=== PATIENT | male | born 1970 | race Caucasian/White ===

== ENCOUNTER 2016-12-16 11:53 | Inpatient (IN) | payer OTHER ==
[~2016-12-16] VITALS: Ht 188 cm; Wt 113.4 kg
[~2016-12-16 11:53] MED LIST: ANTIVERT 25 MG25 M1 PO; ANTIVERT 25MG #1 PAC PO; ATORVASTATIN CA10 MG PO; ATORVASTATIN CA80 M1 PO; BABY ASPIRIN CH81 MG PO; LISINOPRIL10 MG PO; LISINOPRIL20 MG PO; MEDROL DOSEPAK1 PA1 PO; MOTRIN 400 MG400 MG PO; NIACIN500 M4 PO; PLAVIX 75MG TAB75 MG PO; PREDNISONE50 MG PO; ZOFRAN4 M1 PO; [UNRECOGNIZED DRUG - SUPPLY]
--- NOTE | 2016-12-16 11:59 | NUR ---
PT DENIES INJURY RELATED TO FALL
--- NOTE | 2016-12-16 11:59 | NUR ---
RECEIVED 46 YO MALE, WHEELCHAIR DEPENDENT SECONDARY TO CVA WITH LEFT LEG WEAKNESS, C/O 3RD FALL TODAY AND ABOUT 7TH FALL THIS WEEK ACCORDING TO EMS. PT SAID HE FELL TRANSFERRING FROM W/C TO RECLINER, UNABLE TO PICK HIMSELF UP.
[2016-12-16] MEDS ORDERED: LISINOPRIL40 M1 PO (12:18)
[2016-12-16] MEDS ORDERED: CLOPIDOGREL75 M1 PO (12:18)
[2016-12-16] MEDS ORDERED: CRESTOR40 M2 PO (12:19)
[2016-12-16] MEDS ORDERED: HYDROCHLOROTHIA25 M1 PO (12:19)
[2016-12-16] MEDS ORDERED: FENOFIBRATE54 M1 PO (12:19)
--- NOTE | 2016-12-16 12:20 | NUR ---
PA STUDENT AT BEDSIDE TO EVAL PT
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
--- NOTE | 2016-12-16 12:51 | NUR ---
PT LEFT FOR RADIOLOGY
--- NOTE | 2016-12-16 13:29 | NUR ---
LABS DRAWN VIA BUTTERFLY AND SENT
[2016-12-16 13:35] LABS: ABSOLUTE BASOPHIL COUNT 0 /CUMM (0.0-0.2); ABSOLUTE EOSINOPHIL COUNT 0.1 /CUMM (0.0-0.7); ABSOLUTE GRANULOCYTE CT 5.3 /CUMM (1.4-6.5); ABSOLUTE LYMPH COUNT 2.6 /CUMM (1.2-3.4); ABSOLUTE MONOCYTE COUNT 0.6 /CUMM (0.10-0.60); BASOPHIL % 0.5 % (0.0-2.0); EOSINOPHIL % 1.1 % (0-5); GRANULOCYTE % 61.6 % (42.2-75.2); HEMATOCRIT 38.5 % (42-52); MEAN CORPUSCULAR HGB 27.1 PG (27.0-31.0); MEAN CORPUSCULAR HGB CONC 33.2 G/DL (33.0-37.0); MEAN CORPUSCULAR VOLUME 81.6 FL (80.0-94.0); MEAN PLATELET VOLUME 9.4 FL (7.4-10.4); PLATELET COUNT 261 /CUMM (130-400); RBC DISTRIBUTION WIDTH 13.6 % (11.5-14.5); RED BLOOD CELL CT 4.72 /CUMM (4.70-6.10); WHITE BLOOD CELL COUNT 8.6 /CUMM (4.8-10.8)
--- NOTE | 2016-12-16 13:52 | CT SCAN REPORT ---
EXAMINATION: CT HEAD WITHOUT CONTRAST CLINICAL INFORMATION: Previous CVA. Weakness. Rule out stroke. Falling at home. COMPARISON: Head CT from 09/28/2016. TECHNIQUE: Contiguous axial imaging was performed from the skull base to vertex without intravenous administration of contrast. DLP: 743.8 mGy-cm FINDINGS: There is no evidence of acute intracranial hemorrhage or territorial infarction. No abnormal mass effect or midline shift is seen. There is a focal area of low-density change involving the high right parietal lobe near the vertex, not present on previous imaging and most suspicious for an infarct of indeterminate age. There is no hydrocephalus. No extra-axial fluid collections are identified. There are chronic lacunar infarcts in the left basal ganglia. There is a chronic infarct in the left frontal lobe with mild ex vacuo dilatation of the frontal horn of the left lateral ventricle. Mild to moderate chronic white matter microangiopathic changes are present. Chronic cortical-based infarct noted in the medial right frontal lobe at the high convexity. Additional small cortical-based infarcts noted in the right frontal lobe. There is is a small chronic cortical-based infarct in the precentral gyrus of the right frontal lobe at the high convexity. The osseous structures and soft tissues are normal. The mastoid air cells and visualized portions of the paranasal sinuses are well aerated. IMPRESSION: Age-indeterminate infarct in the high right parietal lobe near the vertex which may be acute to subacute in age, not visible on previous imaging. No acute hemorrhage. Scattered chronic infarcts and mild to moderate chronic white matter microangiopathic changes. Imaging findings discussed with SAMIRA Dash at 1:45 PM on 12/16/2016.
--- NOTE | 2016-12-16 14:03 | NUR ---
ATTEMPTED TO AMBULATE PT VIA WALKER AND PT ONLY ABLE TO TAKE A COUPLE STEPS AND BECAME ON STEADY. ASSISTED PT TO BRIELLE AND SAMIRA NOTED AND AWARE OF ATTENMPT
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
--- NOTE | 2016-12-16 15:10 | NUR ---
DR. ROSE AT AT BEDSIDE TO LUCIA PT
--- NOTE | 2016-12-16 15:13 | NUR ---
[facility] ASSIGNMENT [phone]
--- NOTE | 2016-12-16 16:25 | NUR ---
PT VOIDED AND NOW EATING
--- NOTE | 2016-12-16 16:36 | NUR ---
CALLED REPORT AND ATTENPT TO CALL TRANSPORT UNSUCCESSFUL AT PRESENT WILL TRY AGAIN
[2016-12-16 17:50] VITALS: BP 112/60
--- NOTE | 2016-12-16 20:49 | NUR ---
PT HAVING TRIPLETS AND BIGEMENY ON THE MONITOR. MD SALMON NOTIFIED. WILL CONTINUE TO CLOSELY MONITOR.
[2016-12-16 23:10] VITALS: BP 118/60
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
[2016-12-17 07:53] VITALS: BP 102/62
[2016-12-17 08:13] LABS: ABSOLUTE BASOPHIL COUNT 0 /CUMM (0.0-0.2); ABSOLUTE EOSINOPHIL COUNT 0.2 /CUMM (0.0-0.7); ABSOLUTE GRANULOCYTE CT 4.8 /CUMM (1.4-6.5); ABSOLUTE LYMPH COUNT 2.8 /CUMM (1.2-3.4); ABSOLUTE MONOCYTE COUNT 0.6 /CUMM (0.10-0.60); BASOPHIL % 0.4 % (0.0-2.0); EOSINOPHIL % 2.1 % (0-5); GRANULOCYTE % 57.5 % (42.2-75.2); HEMATOCRIT 37.6 % (42-52); MEAN CORPUSCULAR HGB 27.3 PG (27.0-31.0); MEAN CORPUSCULAR HGB CONC 33.5 G/DL (33.0-37.0); MEAN CORPUSCULAR VOLUME 81.4 FL (80.0-94.0); MEAN PLATELET VOLUME 9.9 FL (7.4-10.4); PLATELET COUNT 229 /CUMM (130-400); RBC DISTRIBUTION WIDTH 13.8 % (11.5-14.5); RED BLOOD CELL CT 4.62 /CUMM (4.70-6.10); WHITE BLOOD CELL COUNT 8.4 /CUMM (4.8-10.8)
--- NOTE | 2016-12-17 10:30 | Admission Certification ---
Admission Certification Certification Statement - As attending physician, I certify that at the time of - admission, based on clinical presentation, severity of - symptoms, need for further diagnostic testing and - therapeutic interventions, and risk of adverse outcomes - without in-hospital treatment, in my clinical assessment, - this patient requires an acute hospital stay for a minimum - of two nights or longer. I have also considered psychsocial - factors such as support system, advanced age, financial - issues, cognitive issues, and failed out-patient treatments, - past re-admission history, safety of patient, and lack of - compliance as applicable. Specific rationale supporting this admission is: Patient requires admission for further evaluation and management of what appears to be a new stroke
[2016-12-17 15:44] VITALS: BP 104/70
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
[2016-12-17 23:31] VITALS: BP 110/70
--- NOTE | 2016-12-18 07:27 | PN- Housestaff ---
DALIA GRIGSBY,[facility] 12/18/16 0727: Subjective Follow-up For: gait instability/falls Tele-Events Since Last Visit: Off Monitor Subjective: Patient seen and examined this morning. He was sitting in his chair in no acute distress eating his breakfast, least interested in a conversation, denies any new complaints, remains afebrile, vitals within normal limits. Review of Systems Constitutional: Reports: see HPI. Objective Last 24 Hrs of Vital Signs/I&O Vital Signs Date Time Temp Pulse Resp B/P Pulse O2 O2 Flow FiO2 Ox Delivery Rate 12/18 0836 Room Air 12/18 0830 98.0 52 20 110/70 97 Room Air 12/17 2331 98.4 59 18 110/70 94 Room Air 12/17 1544 97.7 59 16 104/70 96 Room Air 12/17 1223 Room Air Intake & Output 12/18 1600 12/18 0800 12/18 0000 Intake Total 300 720 Output Total 650 Balance 300 70 Intake, Oral 300 720 Output, Urine 650 Physical Exam General Appearance: Alert, Oriented X3, Cooperative, No Acute Distress Cardiovascular: Regular Rate, Normal S1, Normal S2 Lungs: Clear to Auscultation, Normal Air Movement Abdomen: Normal Bowel Sounds, Soft, No Tenderness Extremities: No Clubbing, No Cyanosis, No Edema Current Medications: Current Medications Sig/Fermin Start time Last Medication Dose Route Stop Time Status Admin Atorvastatin Calcium 80 MG 1700 12/16 1700 AC 12/17 PO 1605 Clopidogrel Bisulfate 75 MG DAILY 12/16 1607 AC 12/17 PO 0935 Enoxaparin Sodium 40 MG DAILY 12/17 1000 AC SC Fenofibrate 48 MG DAILY 12/17 1000 AC 12/17 PO 0935 Lisinopril 40 MG DAILY 12/17 1000 AC 12/17 PO 0935 Niacin 500 MG DAILY 12/17 1000 AC 12/17 PO 0935 Patient Medication 1 ED .STK-MED ONE 12/17 1340 [place] Teaching ED 12/17 1341 Last 24 Hrs of Lab/Chong Results Last 24 Hrs of Labs/Mics: Laboratory Tests 12/18/16 0625: Anion Gap 12, Estimated GFR > 60, BUN/Creatinine Ratio 23.6 Assessment/Plan Assessment: This is a 46-year-old male with past medical history significant for labyrinthitis, hypertension, hyperlipidemia, CVA (left hemisphere hemorrhagic stroken 2010), vertigo, PPM for bradycardia in 2015, and TIA who presents with CC of worsening lower extremity weakness and multiple falls within the last few days. Vitals upon presentation temperature 97.3, pulse 66, respiratory rate 19, blood pressure 126/60, satting in mid 90s on room air Pertinent labs WBC 9.6, H&H 12.8, 38.5, potassium 3.3, BUN 28, creatinine 1.1 Age-indeterminate infarct in the high right parietal lobe near the vertex which may be acute to subacute in age, not visible on previous imaging. No acute hemorrhage. Scattered chronic infarcts and mild to moderate chronic white matter microangiopathic changes. We'll admit the patient to telemetry floor and monitor for the following conditions; Weakness, multiple falls, questionable new CVA: Patient was recently admitted at [facility](09/2016), he was managed for lower extremity weakness weakness secondary to CVA, MRI done upon last admission showed multiple acute to subacute infarcts involving the right frontal and parietal lobes inclusive of the right perirolandic region, some of which appear watershed, and some of which are located within the right RICK and MCA territories. EEG done at that time showed structural abnormality of the left frontal and right temporal head regions, CT head and neck showed extensive intracranial atherosclerosis with marked irregularity and multifocal narrowing. He was transferred to [facility] for further evaluation for possibility of vasculitis and to have a cerebral angiogram done. As per patient he spent a couple of days at [facility] in the cerebral angiogram was done but he is not aware of the results, he was discharged to a short-term rehabilitation where for almost a month and a half. From be discharged from short-term rehabilitation up until now he has been living alone in his house, does his daily chores by himself without any difficulty. He follows up with his neurologist upon discharge who discontinued his aspirin and asked him to take Plavix alone. Records from [facility] reviewed no evidence of vasculitis as per cerebral angiogram, hypercoagulable workup negative, the also did an LP there which did not reveal any evidence of an intracranial infection, most likely cause seems to be intracranial atherosclerosis insetting of bilateral carotid artery stenosis 50-79% , he also continues to smoke and not following appropriate likely dietry restrictions insetting of being overweight and not being able to exercise secondary to stoke related residual weakness. We'll continue home dose of Plavix 75 mg and Lipitor 80 mg daily. Continuous cardiac monitoring for any arrhythmias Frequent Neurochecks PT and OT consult placed will follow-up recommendation Neurology consult obtained, has recommended Smoking cessation, to continue Plavix, ASA, Statin, goal LDL~70, prosthetics for a left ankle-foot orthosis and to follow-up in [facility] neurology clinic with Dr. Chan History of hyperlipidemia: We'll continue home dose of niacin 500 mg daily, fenofibrate. History of hypertension: Continue home dose of lisinopril 40 mg and hydrochlorothiazide 25 mg daily Diet: Heart healthy DVT prophylaxis with Lovenox Full code Problem List: 1. CVA (cerebral vascular accident) 2. Left leg weakness 3. Frequent falls Pain Ratin Pain Location: none Pain Goal: Remain pain free Pain Plan: mild pp Tomorrow's Labs & Rationales: none patient to be discharged Consulting Request: Consulting Specialty: Neurology Discharge Plan Discharge Disposition: awaiting STR/NH placement Stable for Discharge? Yes Anticipated Discharge (Day): today If Discharged Today/In 24 Hrs: W-10/discharge paper done, DC summary done, CMR done SUSIE GABRIEL MD 12/18/16 1225: Attending MD Review Statement Attending Statement Attending MD Statement: examined this patient, discuss w/resident/PA/CROSSCUTTER, agreed w/resident/PA/CROSSCUTTER, reviewed EMR data (avail), discussed with nursing, discussed with case mgmt, amended to note Attending Assessment/Plan: Patient seen and examined. Resting comfortably and not in acute distress. He continues have a flat affect. He is not overtly engaged. No issues overnight. Evaluation by the physical therapist service appreciated. Recommendations are for acute rehabilitation. Neurology consultation appreciated. Continue antiplatelet therapy as well as lipid-lowering therapy. Patient reports that he was instructed to continue on Plavix only following discharge from [facility]. We'll continue patient on this single antiplatelet agent. A large study showed that dual antiplatelet therapy was just as efficacious as single agent therapy but with an increased risk of bleeding complications (MATCH Trial). On exam he continues to have weakness in the left upper and lower extremities. He has abrasions on his knees bilaterally with obtaining today because patient has been peeling off the scabs. He has been advised to abstain from this. Recommendations: -Patient medically stable to be discharged today to acute rehabilitation for further therapy. -Patient to follow-up his cardiology service as an outpatient for interrogation of his pacemaker. -Continue antiplatelet therapy with Plavix. Continue lipid-lowering therapy. -Patient will be fitted for a left ankle brace at the acute rehabilitation facility. -His blood pressure is acceptable today. His hydrochlorothiazide has been discontinued. He will continue lisinopril upon discharge. -His CPK level is mildly elevated around 500. May be secondary to his falls. It is noted that his statin therapy was increased in the last admission. Recommend repeating CPK levels next week. If still elevated would recommend decreasing the dose of his statin therapy.
--- NOTE | 2016-12-18 07:45 | Patient Discharge Instructions ---
Discharge Instructions General Discharge Information You were seen/treated for: Multiple Mechanical Falls in setting of significant cerebrovascular disease Hypertension Dyslipidemia You had these procedures: None Special Instructions: Please schedule a follow up appointment with your primary care physician. Please recheck CPK on Wednesday(12/18/16) to r/o rhabdomyolysis in setting of being on statin, please talk to your primary care physician regarding this if statins dose need to be decreased, Hydrochlorthiazide has been stopped due to low blood pressure, discuss with your primary care physician on when to restart it safely. Please consult [facility] orthotics and prosthetics for a left ankle-foot orthosis Please follow-up in [facility] neurology clinic with Dr. Chan Diet Continue normal diet: Yes Recommended Diet: Heart Healthy, Low Fat Activity Activity Self Limited: Yes Acute Coronary Syndrome Inclusion Criteria At DC or during hospital stay patient has or had the following: ACS DIAGNOSIS No Discharge Core Measures Meds if any: Prescribed or Continued at Discharge Meds if any: NOT Prescribed or Continued at Discharge Congestive Heart Failure Inclusion Criteria At DC or during hospital stay patient has or had the following: CHF DIAGNOSIS No Discharge Core Measures Meds if any: Prescribed or Continued at Discharge Meds if any: NOT Prescribed or Continued at Discharge Cerebrovascular accident Inclusion Criteria At DC or during hospital stay patient has or had the following: CVA/TIA Diagnosis No Discharge Core Measures Meds if any: Prescribed or Continued at Discharge Meds if any: NOT Prescribed or Continued at Discharge Venous thromboembolism Inclusion Criteria VTE Diagnosis No VTE Type NONE VTE Confirmed by (Test) NONE Discharge Core Measures - Per Current guidelines, there needs to be overlap - treatment for the first 5 days of Warfarin therapy. - If discharged on Warfarin prior to 5 days of - overlap therapy, the patient will need to be - assessed for post discharge needs including - *Post discharge parental anticoagulation - *Warfarin and/or parental anticoagulation education - *Follow up date to check INR post discharge At least 5 days overlap therapy as Inpatient No Meds if any: Prescribed or Continued at Discharge Note: Overlap Therapy is Warfarin and Anticoagulant Meds if any: NOT Prescribed or Continued at Discharge
[2016-12-18 08:30] VITALS: BP 110/70
--- NOTE | 2016-12-18 09:44 | Discharge Summary ---
See Addendum Visit Information Visit Dates Admission Date: 12/16/16 Discharge Date: 12/18/2016 Hospital Course Course Attending Physician: SUSIE GABRIEL M.D Primary Care Physician: GAGE LOTT APRN Consulting Request: Consulting Specialty: Neurology Hospital Course: Patient is a 46-year-old male with history of hypertension, dyslipidemia and stroke. Last admitted to [facility] September 2016 with cerebral imaging revealed severe intracranial atherosclerosis particularly involving the right MCA and RICK. He was transferred to [facility] for further evaluation however results of the evaluation are currently not available. Patient is not the best of historians. He denies any surgical intervention. He spent a month and half reports that since discharge from rehabilitation he has been ambulating with the aid of walker. He reports that his gait is unsteady and he has fallen down different occasions. Due to this for the past week he uses a wheelchair for mobility. He reports falling down while trying to transfer himself from his wheelchair today. Decrease subjective report of increased weakness in his left lower extremity. He admits to having foot drop but has not been fitted with a brace. Cerebral imaging in the ER today redemonstrates his old area of infarct however there is an area of infarct located in the right parietal region not previously noted on imaging in September. In discussion with the reading radiologist, area of infarct is in the territory supplied by his stenotic right MCA. It is unclear the acuity of this infarct. On examination patient is alert and oriented 3. He has a flat affect. No carotid bruit. Heart sounds are regular with no. Lungs are clear to auscultation bilaterally. Abdomen soft and nontender. Polymerase follow-up 5 in right upper and lower extremities. Power is 4 over 5 in left upper extremities and 3 over 5 in left lower extremity. We admitted the patient to the telemetry service. We Continued antiplatelet therapy with Plavix, lipid-lowering therapy. Records from [facility] have been reviewed. Workup was negative for vasculitis or hypercoagulable state. His disease was attributed to intracranial atherosclerosis. Unfortunately medical management remains his only option. He has low C-reactive protein at admission. Neurology consult was obtained, patient was seen by who recommend plavix and aspirin, statin, goal of LDL ~70, patient will f/u with neurology in outpatient setting. X Ray Operator saw the patient and he recommended checking CPK to r/o rhabdomyolysis, pacemaker will be interogated to look for dysrhythmias or other high rate events. PT/OT evaluated the patient, he need STR. He needs a left ankle-foot orthosis. 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 Hydrochlorthiazide has been stopped due to low blood pressure, discuss with your primary care physician on when to restart it safely. Please consult [facility] orthotics and prosthetics for a left ankle-foot orthosis Please follow-up in [facility] neurology clinic with Dr. Chan Medications at Discharge Discharge Medications: Stop taking the following medications: Hydrochlorothiazide (Hydrochlorothiazide) 25 MG TABLET ORAL DAILY Qty = 90 Continue taking these medications: Meclizine (Antivert) 12.5 MG TABLET 1 Tablet ORAL THREE TIMES DAILY as needed for VERTIGO Qty = 30 [AMBULATORY WALKER] 0 Instructions: USE DIRECTED: DX: WEAKNESS Atorvastatin Calcium (Atorvastatin Calcium) 80 MG TABLET 1 Tablet ORAL 5 PM Days = 30 Comments: Last Taken: 12/17/16 Time: 4 PM Niacin (Niacin) 500 MG CAPSULE.ER 1 Capsule ORAL DAILY Days = 30 Comments: Last Taken: 12/18/16 Time: 945 AM Clopidogrel Bisulfate (Clopidogrel) 75 MG TABLET 1 Tablet ORAL DAILY Qty = 90 Comments: Last Taken: 12/18/16 Time: 945 AM Lisinopril (Lisinopril) 40 MG TABLET 1 Tablet ORAL DAILY Qty = 90 Comments: Last Taken: 12/18/16 Time: 945 AM Fenofibrate (Fenofibrate) 54 MG TABLET 1 Tablet ORAL DAILY Qty = 30 Comments: Last Taken: 12/18/16 Time: 945 AM Copies To: SUSIE GABRIEL M.D
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
[2016-12-18 14:32] VITALS: BP 118/74
== END 2016-12-18 16:03 | DRG 58 ==
LOC: ENRESERVDT → CANRESERV → ENRESERVTM → ERH 11:53 → ERHI 14:22 → ENPENDDIS 14:22 → 1NO 14:22
PROVIDERS: Physician Assistant Medical; Student in an Organized Health Care Education/Training Program; ADMIT Internal Medicine
DX: I67.2 Cerebral atherosclerosis (principal); I69.354 Hemiplegia and hemiparesis following cerebral infarction affecting left non-dominant side; E78.5 Hyperlipidemia, unspecified; I10 Essential (primary) hypertension; Z95.0 Presence of cardiac pacemaker; F17.210 Nicotine dependence, cigarettes, uncomplicated; R26.89 Other abnormalities of gait and mobility; E87.6 Hypokalemia; F01.50 Vascular dementia, unspecified severity, without behavioral disturbance, psychotic disturbance, mood disturbance, and anxiety; Z91.81 History of falling
CPT/HCPCS: 1NSP; 36415; 82436; 93005; 93010; 97110-GO; 97112-GO; 97162-GP; 97166-GO; 97530-GO; J1650

== ENCOUNTER 2017-03-30 12:06 | Inpatient (IN) | payer OTHER ==
[~2017-03-30] VITALS: Ht 188 cm; Wt 136.1 kg
[~2017-03-30 12:06] MED LIST changes: +CLOPIDOGREL75 M1 PO; +CRESTOR40 M2 PO; +FENOFIBRATE54 M1 PO; +HYDROCHLOROTHIA25 M1 PO; +LISINOPRIL40 M1 PO
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
--- NOTE | 2017-03-30 12:20 | NUR ---
PT BIBA FROM HOME AFTER WAKING UP AT 9AM WITH LEFT ARM NUMBNESS AND WEAKNESS. PT STATES HE HAS A HX OF STROKE LAST OCTOBER. PT NOTED WITH PACEMAKER TO [facility]. PT A&OX3. DENIES ANY CP, NSR ON CM. DENIES ANY DIFF BREATHING, DENIES ANY ABD PAIN OR N/V/D. SKIN COLOR APPEARS NORMAL.
[2017-03-30 12:51] LABS: ABSOLUTE BASOPHIL COUNT 0 /CUMM (0.0-0.2); ABSOLUTE EOSINOPHIL COUNT 0.1 /CUMM (0.0-0.7); ABSOLUTE LYMPH COUNT 1.6 /CUMM (1.2-3.4); ABSOLUTE MONOCYTE COUNT 0.3 /CUMM (0.10-0.60); BASOPHIL % 0.8 % (0.0-2.0); EOSINOPHIL % 1.5 % (0-5); GRANULOCYTE % 65.7 % (42.2-75.2); HEMATOCRIT 36.6 % (42-52); MEAN CORPUSCULAR HGB 27.3 PG (27.0-31.0); MEAN CORPUSCULAR VOLUME 80.1 FL (80.0-94.0); PLATELET COUNT 231 /CUMM (130-400); RBC DISTRIBUTION WIDTH 14.6 % (11.5-14.5); RED BLOOD CELL CT 4.57 /CUMM (4.70-6.10); WHITE BLOOD CELL COUNT 6.1 /CUMM (4.8-10.8)
--- NOTE | 2017-03-30 12:52 | CT SCAN REPORT ---
EXAMINATION: CT HEAD WITHOUT CONTRAST CLINICAL INFORMATION: Weakness. Assess for CVA. COMPARISON: CT scan of the head 12/16/2016. TECHNIQUE: Contiguous axial imaging was performed from the skull base to vertex without intravenous administration of contrast. DLP: 722.22 mGy-cm FINDINGS: There are new areas of loss of gipson-white differentiation in the right middle and inferior frontal gyri, which may be consistent with evolving acute/subacute infarcts. The study redemonstrates relatively extensive low attenuation in the periventricular and subcortical white matter bilaterally as well as in the high right parietal region, consistent with sequelae of chronic microvascular ischemic disease and old infarcts. There are focal small densities in the anterior right superior frontal gyrus and in the right centrum semiovale which may be consistent with small foci of calcification or hemorrhage. There is no mass effect or midline shift. There are no extra-axial fluid collections. There is ex-vacuo dilatation of the anterior body of the left lateral ventricle secondary to chronic infarcts in the left frontal lobe adjacent to it. There are moderate atheromatous calcifications in the cavernous internal carotid arteries bilaterally and in the left vertebral artery. There are no acute osseous or soft tissue abnormalities. The mastoid air cells and visualized portions of the paranasal sinuses are well aerated. IMPRESSION: 1. There is new loss of gipson-white differentiation in the right middle and inferior frontal gyri, consistent with evolving acute/subacute infarcts. This could be further evaluated with MRI. 2. Small foci of increased density in the right superior frontal gyrus and right centrum semiovale may be consistent with focal calcifications versus small hemorrhages. 3. There is a background of sequelae of prior multifocal infarcts and microvascular ischemic disease. 4. This critical result was discussed with Kandice Rizzo by telephone on 03/30/2017 12:46 PM and it was ascertained that the content and urgency of the report was understood at the time of direct communication.
[2017-03-30 12:59] LABS: PT 11.6 SEC (9.4-12.5); PTT 26 SEC (25-37)
--- NOTE | 2017-03-30 13:20 | NUR ---
PT STARTING TO MOVE LT ARM MORE ON OWN, ABLE TO SCRATCH FACE WITH LEFT ARM NOW.
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
--- NOTE | 2017-03-30 14:04 | NUR ---
MEDICATED WITH ASPIRIN (SEE MAR)
--- NOTE | 2017-03-30 14:08 | NUR ---
HOUSE STAFF IN TO EVAL.
[2017-03-30] MEDS ORDERED: CRESTOR40 M2 PO (14:12)
[2017-03-30] MEDS ORDERED: HYDROCHLOROTHIA25 M1 PO (14:14)
[2017-03-30] MEDS ORDERED: ASPIRIN81 M4 PO (14:14)
[2017-03-30] MEDS ORDERED: MECLIZINE HCL12.5 M1 PO (15:27)
--- NOTE | 2017-03-30 16:08 | NUR ---
PATIENT REMAINS ALERT ORIENTED SKIN WARM DRY C/O NUMBESS ON LEFT EXTREMITIES BUT DOES HAVE MODERATE STRENGHT
--- NOTE | 2017-03-30 17:34 | NUR ---
BED 172-1
--- NOTE | 2017-03-30 18:09 | NUR ---
REPORT GIVEN PATIENT CONDITION UNCHANGED SKIN WARM DRY ALERT ORIENTED LEFT SIDE MUCH IMPROVED BUT STILL C/O "PINS AND NEEDLES " LEFT AND RIGHT ARM STRENGHT NOW STRONG AND EQUAL PATIENT REQUESTING [facility] CALLED FOR PATIENT
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
--- NOTE | 2017-03-30 18:39 | NUR ---
RETURNED FROM ULTRASOUND TROPONIN #2 DONE PATIENT EATING W/O ISSUE
[2017-03-30 19:20] VITALS: BP 172/98
[2017-03-31 00:09] VITALS: BP 178/112
[2017-03-31 08:00] VITALS: BP 160/90
--- NOTE | 2017-03-31 08:20 | PN- Housestaff ---
Subjective Follow-up For: CVA Subjective: Seen and examined at bedside. Denies any new focal neurological deficits. No telemetry or other o/n event. Review of Systems Constitutional: Reports: no symptoms. Objective Last 24 Hrs of Vital Signs/I&O Vital Signs Date Time Temp Pulse Resp B/P B/P Pulse O2 O2 Flow FiO2 Mean Ox Delivery Rate 03/31 1601 98.9 73 18 140/74 96 03/31 0800 98.8 59 20 160/90 95 Room Air 03/31 0009 98.3 70 18 178/112 95 Room Air Intake & Output 03/31 1600 03/31 0800 03/31 0000 Intake Total 500 260 260 Output Total 300 300 Balance 500 -40 -40 Intake, IV 20 20 Intake, Oral 500 240 240 Number 1 Bowel Movements Output, Urine 300 300 Patient 136.078 kg Weight Weight Reported by Patient Measurement Method Physical Exam General Appearance: Alert, Oriented X3, Cooperative Cardiovascular: Regular Rate, Normal S1, Normal S2 Lungs: Clear to Auscultation, Normal Air Movement Abdomen: Normal Bowel Sounds, Soft, No Tenderness Neurological: Normal Gait, Normal Speech, Normal Tone, Sensation Intact, Cranial Nerves 3-12 NL Extremities: No Clubbing, No Cyanosis, No Edema, No Tenderness/Swelling Assessment/Plan Assessment: This is a 46-year-old male with a significant history of multiple strokes with radiological findings of 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 And seen at the ED his symptoms seem to have improved with tingling from his elbow to his fingers as the only remaining complaint. His physical examination was unremarkable for any other focal neurological deficit other than some upper extremity weakness and complaints of the tingling sensation. Radiological finding of CTA head without contrast had the following findings: 1. There is new loss of gipson-white differentiation in the right middle and inferior frontal gyri, consistent with evolving acute/subacute infarcts. This could be further evaluated with MRI. 2. Small foci of increased density in the right superior frontal gyrus and right centrum semiovale may be consistent with focal calcifications versus small hemorrhages. 3. There is a background of sequelae of prior multifocal infarcts and microvascular ischemic disease. Impression and plan #CVA (recurrent) Patient presents with complaints of focal neurological deficits with radiological findings of acute/subacute stroke infarcts. He doesn't have a history of severe intracranial atherosclerosis and he is to be a daily smoker which increases his risk of recurrent stroke. Pt had this event despite dual antiplatelet therapy of Plavix and aspirin. Plan Continue telemetry for close monitoring for any arrhythmias Neurochecks every 4hrs Continuet Aggrenox. COntinue atorvastatin 80 mg (even though this switch is not of high intensity however most studies have been done with atorvastatin then rosuvastatin in stroke prophylaxis) Smoking cessation counseling PT/OT tomorrow morning #History of hypertension Will hold off lisinopril and hydrochlorothiazide for now to allow permissive hypertension of systolic around 160-180. #History of hyperlipidemia Atorvastatin 80 mg daily #History of tobacco abuse Smoking cessation Nicotine patch 14 mg daily # history of symptomatic bradycardia Visit status post dual chamber permanent pacemaker. #History of vertigo dizziness Continue home dose of Meclizine. Problem List: 1. CVA (cerebral vascular accident) Pain Ratin Pain Location: none Pain Goal: Remain pain free Pain Plan: per pain pathway Tomorrow's Labs & Rationales: bep Consulting Request: Consulting Specialty: Neurology
--- NOTE | 2017-03-31 11:04 | ULTRASOUND REPORT ---
EXAMINATION: DUPLEX BILATERAL CAROTID ULTRASOUND CLINICAL INFORMATION: Stroke. COMPARISON: Carotid ultrasound 09/25/2016. TECHNIQUE: Real-time ultrasound and Doppler techniques (integrating B-mode 2D vascular images, Doppler spectral analysis and color flow Doppler imaging) were utilized to interrogate the extracranial carotid and vertebral arteries bilaterally. The degree of stenosis determined by criteria similar to NASCET. Examination limited secondary to patient body habitus. FINDINGS: Right side: 1. No definitive plaque is seen in the ECA/ICA region. 2. The common carotid artery velocity is 90 cm/s. 3. The internal carotid artery velocities are 81 cm/s systolic and 24 cm/s diastolic. 4. The external carotid artery velocity is 140 cm/s. Left side: 1. No definitive plaque is seen in the ECA/ICA region. 2. The common carotid artery velocity is 121 cm/s. 3. The internal carotid artery velocities are 127 cm/s systolic and 22 cm/s diastolic. 4. The external carotid artery velocity is 129 cm/s. ADDITIONAL FINDINGS: 1. The vertebral arteries show antegrade flow. IMPRESSION: 1. RIGHT: No significant stenosis of the proximal right internal carotid artery by velocity criteria. (Prior velocity of the right internal carotid artery in September 2016 was 128 cm/s which corresponded with a 50-79% stenosis). 2. LEFT: No significant stenosis of the proximal left internal carotid artery by velocity criteria. Although velocities within the proximal left internal carotid artery are mildly elevated, there is no plaque to suggest stenosis.(Prior velocity of the left internal carotid artery in September 2016 was 125 cm/s which corresponded with a 50-79% stenosis). 3. No evidence for hemodynamically significant stenosis in the external carotid arteries. Overall, no significant stenoses are identified. If clinically indicated, further evaluation with neck CTA may be obtained.
--- NOTE | 2017-03-31 11:38 | PN- Att Addend ---
Attending Addendum Attending Brief Note Patient seen and examined, feeling almost the same. Still has some tingling and numbness in his left upper extremity as well as slight weakness. Vital Signs Date Time Temp Pulse Resp B/P B/P Pulse O2 O2 Flow FiO2 Mean Ox Delivery Rate 03/31 0800 98.8 59 20 160/90 95 Room Air 03/31 0009 98.3 70 18 178/112 95 Room Air 03/30 1920 98.6 66 16 172/98 98 Room Air 03/30 1813 98.0 78 18 168/84 97 Room Air 03/30 1609 98.0 78 20 166/84 98 Room Air 03/30 1404 97.4 72 16 190/104 98 Room Air 03/30 1218 98.7 75 16 143/96 94 Room Air on exam; aox3, nad. cv; s1,s2, rrr resp; clear abd; soft, nt, bs+ ext; no edema neuro; 4/5 strength in lue. Laboratory Tests 03/31 03/30 03/30 0605 1840 1241 Chemistry Sodium (137 - 145 mmol/L) 139 142 Potassium (3.5 - 5.1 mmol/L) 3.5 3.4 L Chloride (98 - 107 mmol/L) 105 104 Carbon Dioxide (22 - 30 mmol/L) 25 29 Anion Gap (5 - 16) 9 9 BUN (9 - 20 mg/dL) 16 13 Creatinine (0.7 - 1.2 mg/dL) 0.8 0.9 Estimated GFR (>60 ml/min) > 60 > 60 BUN/Creatinine Ratio (7 - 25 %) 20.0 14.4 Glucose (65 - 99 mg/dL) 94 Calcium (8.4 - 10.2 mg/dL) 8.9 Total Bilirubin (0.2 - 1.3 mg/dL) 0.6 AST (17 - 59 U/L) 22 ALT (21 - 72 U/L) 43 Alkaline Phosphatase (< 127 U/L) 80 Troponin I (<0.11 ng/ml) < 0.01 < 0.01 Total Protein (6.3 - 8.2 g/dL) 6.8 Albumin (3.5 - 5.0 g/dL) 4.1 Globulin (1.9 - 4.2 gm/dL) 2.7 Albumin/Globulin Ratio (1.1 - 2.2 %) 1.5 Coagulation PT (9.4 - 12.5 SEC) 11.6 INR (0.90 - 1.17) 1.11 APTT (25 - 37 SEC) 26 Hematology CBC w Diff NO MAN DIFF REQ WBC (4.8 - 10.8 /CUMM) 6.1 RBC (4.70 - 6.10 /CUMM) 4.57 L Hgb (14.0 - 18.0 G/DL) 12.5 L Hct (42 - 52 %) 36.6 L MCV (80.0 - 94.0 FL) 80.1 MCH (27.0 - 31.0 PG) 27.3 RDW (11.5 - 14.5 %) 14.6 H Plt Count (130 - 400 /CUMM) 231 MPV (7.4 - 10.4 FL) 9.0 Gran % (42.2 - 75.2 %) 65.7 Lymphocytes % (20.5 - 51.1 %) 26.9 Monocytes % (1.7 - 9.3 %) 5.1 Eosinophils % (0 - 5 %) 1.5 Basophils % (0.0 - 2.0 %) 0.8 Absolute Granulocytes (1.4 - 6.5 /CUMM) 4.0 Absolute Lymphocytes (1.2 - 3.4 /CUMM) 1.6 Absolute Monocytes (0.10 - 0.60 /CUMM) 0.3 Absolute Eosinophils (0.0 - 0.7 /CUMM) 0.1 Absolute Basophils (0.0 - 0.2 /CUMM) 0 PUBS MCHC (33.0 - 37.0 G/DL) 34.0 A/P; 46-year-old male with past medical history significant for hypertension, hyperlipidemia, history of previous right MCA and RICK territory strokes multiple times has been evaluated at [facility] for possible vasculitis, hypercoagulable state with workup negative as documented in neurologist note previously who is admitted with acute CVA. No significant any events. Patient was started on Aggrenox (switched from aspirin and Plavix) He is also started on high dose statin. Smoking cessation counseling was given. Currently patient on nicotine. Carotid ultrasound repeated and does not show any significant stenosis. Echocardiogram results pending. Patient to be seen by physical therapy. DVT prophylaxis: Lovenox. Disposition: Pending PT evaluation.
[2017-03-31 16:01] VITALS: BP 140/74
[2017-03-31 23:30] VITALS: BP 148/98
--- NOTE | 2017-04-01 06:47 | PN- Housestaff ---
RHODA GRIGSBY,BOB 04/01/17 0647: Subjective Follow-up For: CVA Subjective: Seen and examined at bedside. Has any new focal neurological deficit, aspirin, palpitation, shortness of breath, fever, chills, nausea, vomiting, vision loss, abdominal pain or dysuria. No acute telemetry event noted and no acute overnight nursing report noted. Review of Systems Constitutional: Reports: no symptoms. Objective Last 24 Hrs of Vital Signs/I&O Vital Signs Date Time Temp Pulse Resp B/P B/P Pulse O2 O2 Flow FiO2 Mean Ox Delivery Rate 04/01 08 98.2 78 20 150/90 96 Room Air 03/31 2330 98.6 60 18 148/98 95 Trach Mask 03/31 1601 98.9 73 18 140/74 96 Intake & Output 04/01 1600 04/01 0800 04/01 0000 Intake Total 480 240 Output Total 200 200 400 Balance 280 -200 -160 Intake, Oral 480 240 Number 1 Bowel Movements Output, Urine 200 200 400 Physical Exam General Appearance: Alert, Oriented X3, Cooperative Other Physical Findings: 4/5 Left arm strength. Sensation to soft touch is intact. 3/4 strength left leg (chronic), mild right-sided facial droop. Visual field test is normal. Normal finger-nose and rapid alternating hand movement test. Negative Babinski. Current Medications: Current Medications Sig/Fermin Start time Last Medication Dose Route Stop Time Status Admin Acetaminophen 650 MG Q6P PRN 03/30 1445 AC PO Atorvastatin Calcium 80 MG 1700 03/31 1700 AC 03/31 PO 1733 Dipyridamole/Aspirin 1 CAP BID 03/30 2200 AC 04/01 PO 0830 Enoxaparin Sodium 40 MG DAILY 03/31 1000 AC 04/01 SC 0831 Fenofibrate 48 MG DAILY 03/31 1000 AC 04/01 PO 0832 Niacin 500 MG DAILY 03/31 1000 AC 04/01 PO 0831 Nicotine 14 MG DAILY 03/30 1733 AC TOP Patient Medication 1 ED .STK-MED ONE 04/01 1341 DC Teaching ED 04/01 1342 Potassium Chloride 40 MEQ ONCE ONE 04/01 1315 DC PO 04/01 1316 Last 24 Hrs of Lab/Chong Results Last 24 Hrs of Labs/Mics: Laboratory Tests 04/01/17 0605: Anion Gap 11, Estimated GFR > 60, BUN/Creatinine Ratio 16.3 Assessment/Plan Assessment: This is a 46-year-old male with a significant history of multiple strokes with radiological findings of 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 And seen at the ED his symptoms seem to have improved with tingling from his elbow to his fingers as the only remaining complaint. His physical examination was unremarkable for any other focal neurological deficit other than some upper extremity weakness and complaints of the tingling sensation. Radiological finding of CTA head without contrast had the following findings: 1. There is new loss of gipson-white differentiation in the right middle and inferior frontal gyri, consistent with evolving acute/subacute infarcts. This could be further evaluated with MRI. 2. Small foci of increased density in the right superior frontal gyrus and right centrum semiovale may be consistent with focal calcifications versus small hemorrhages. 3. There is a background of sequelae of prior multifocal infarcts and microvascular ischemic disease. Impression and plan #CVA (recurrent) Patient presents with complaints of focal neurological deficits with radiological findings of acute/subacute stroke infarcts. He doesn't have a history of severe intracranial atherosclerosis and he is to be a daily smoker which increases his risk of recurrent stroke. Pt had this event despite dual antiplatelet therapy of Plavix and aspirin. Plan Patient is stable today with no noted telemetry events or any new focal neurological deficit. He is medically optimized on a dose statin and dual antiplatelet therapy switched from Plavix aspirin to Aggrenox. Carotid Doppler was unremarkable for any increasing significant stenosis. Patient is stable for discharge today pending echo Problem List: 1. 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 No other acute events on telemetry. Vital Signs Date Time Temp Pulse Resp B/P B/P Pulse O2 O2 Flow FiO2 Mean Ox Delivery Rate 04/01 0800 98.2 78 20 150/90 96 Room Air 03/31 2330 98.6 60 18 148/98 95 Trach Mask 03/31 1601 98.9 73 18 140/74 96 on exam; aox3, nad. cv; s1,s2, rrr resp; clear abd; soft, nt, bs+ ext; no edema. Laboratory Tests 04/01 605 Chemistry Sodium (137 - 145 mmol/L) 141 Potassium (3.5 - 5.1 mmol/L) 3.5 Chloride (98 - 107 mmol/L) 104 Carbon Dioxide (22 - 30 mmol/L) 26 Anion Gap (5 - 16) 11 BUN (9 - 20 mg/dL) 13 Creatinine (0.7 - 1.2 mg/dL) 0.8 Estimated GFR (>60 ml/min) > 60 BUN/Creatinine Ratio (7 - 25 %) 16.3 A/P; 46-year-old male with past medical history significant for hypertension, hyperlipidemia, history of previous right MCA and RICK territory strokes multiple times has been evaluated at [facility] for possible vasculitis, hypercoagulable state with workup negative as documented in neurologist note previously who is admitted with acute CVA. From the year [facility] records, patient's antithrombin III, factor V Leiden and M.D. HFR testing for homocystinemia was negative. Patient has been kept on Aggrenox. He is otherwise medically stable for discharge. Echo cardio Isaias done and results are awaited. Once results become available, patient can go home today. He will be getting home services.
[2017-04-01] MEDS ORDERED: AGGRENOX 25 MG1 EACH PO (07:10)
--- NOTE | 2017-04-01 07:13 | Patient Discharge Instructions ---
Discharge Instructions General Discharge Information You were seen/treated for: STROKE Special Instructions: Please seek medical attention if you develop more symptoms of worsening of your arm//leg weakness, facial drooping or speech impairment Please follow up with primary care within 1 week Smoking is associated with an increased risk of strokes, please refrain from smoking and discuss smoking cessation with your primary care physician Acute Coronary Syndrome Inclusion Criteria At DC or during hospital stay patient has or had the following: ACS DIAGNOSIS No Discharge Core Measures Meds if any: Prescribed or Continued at Discharge Meds if any: NOT Prescribed or Continued at Discharge Congestive Heart Failure Inclusion Criteria At DC or during hospital stay patient has or had the following: CHF DIAGNOSIS No Discharge Core Measures Meds if any: Prescribed or Continued at Discharge Meds if any: NOT Prescribed or Continued at Discharge Cerebrovascular accident Inclusion Criteria At DC or during hospital stay patient has or had the following: CVA/TIA Diagnosis Yes Discharge Core Measures Meds if any: Prescribed or Continued at Discharge Meds if any: NOT Prescribed or Continued at Discharge Venous thromboembolism Inclusion Criteria VTE Diagnosis No VTE Type NONE VTE Confirmed by (Test) NONE Discharge Core Measures - Per Current guidelines, there needs to be overlap - treatment for the first 5 days of Warfarin therapy. - If discharged on Warfarin prior to 5 days of - overlap therapy, the patient will need to be - assessed for post discharge needs including - *Post discharge parental anticoagulation - *Warfarin and/or parental anticoagulation education - *Follow up date to check INR post discharge At least 5 days overlap therapy as Inpatient No Meds if any: Prescribed or Continued at Discharge Note: Overlap Therapy is Warfarin and Anticoagulant Meds if any: NOT Prescribed or Continued at Discharge
[2017-04-01 08:00] VITALS: BP 150/90
[2017-04-01] MEDS ORDERED: ATORVASTATIN CA80 M1 PO (08:26)
--- NOTE | 2017-04-01 14:21 | ECHOCARDIOGRAM REPORT ---
KACI MAK Age: 46 : 1970 Gender: M Exam Date: 03/31/2017 18:34 Exam Location: [place] Ht (in): 74 Wt (lb): 300 BSA: 2.72 BP: 179 / 112 Ordering Physician: BOB DUONG MD Referring Physician: Daniel Xavier MD, PhD Technologist: Marija Suarez [facility] Room Number: 172 Indications: STROKE Rhythm: Sinus Technical Quality: technically limited FINDINGS Left Ventricle Normal left ventricular size with mild to moderate left ventricular hypertrophy. Normal systolic function with no obvious regional wall motion abnormalities. Normal left ventricular diastolic filling pattern for age. The ejection fraction is visually estimated at 60%. Right Ventricle The right ventricle is normal in size and function. A pacemaker lead is noted in the right cardiac chambers. Right Atrium The right atrium is normal in size. Left Atrium The left atrium is mildly enlarged. The interatrial septum is intact. Mitral Valve The mitral valve is normal in structure and function. There is no mitral regurgitation. Aortic Valve Structurally normal aortic valve without significant sclerosis or stenosis. There is no aortic regurgitation. Tricuspid Valve The tricuspid valve is normal in structure and function. There is trace tricuspid regurgitation. Pulmonary artery systolic pressure is normal. Pulmonic Valve Structurally normal pulmonic valve. There is trace pulmonic regurgitation. Pericardium Normal pericardium without effusion. No pleural effusion. Great Vessels Normal aortic root dimension. The aortic arch and great vessels are well seen and are normal. CONCLUSIONS 1. Normal EF of 60%. 2. Mild to moderate left ventricular hypertrophy. 3. Mild left atrial enlargment. 4. Pacemaker lead noted. 5. Trace tricuspid regurgitation. 6. Trace pulmonic regurgitation. Daniel Xavier M.D. (Electronically Signed) Final Date: 01 Apr 2017 14:21 MEASUREMENTS (Male / Female) Normal Values 2D ECHO LV Diastolic Diameter PLAX 5.5 cm 4.2 - 5.9 / 3.9 - 5.3 cm LV Systolic Diameter PLAX 2.4 cm 2.1 - 4.0 cm LV Fractional Shortening PLAX 56.4 % 25 - 46 % LV Ejection Fraction 2D Teich 86.3 % IVS Diastolic Thickness 1.4 cm LVPW Diastolic Thickness 1.4 cm LV Relative Wall Thickness 0.5 RV Internal Dim ED PLAX 3.3 cm 1.9 - 3.8 cm LVOT Diameter 2.2 cm Aortic Root Diameter 3.0 cm LA Systolic Diameter LX 4.1 cm 3.0 - 4.0 / 2.7 - 3.8 cm LA Volume 48.0 cm 18 - 58 / 22 - 52 cm Ascending Aorta Diameter 3.2 cm DOPPLER AV Peak Velocity 231.0 cm/s AV Peak Gradient 21.3 mmHg AV Mean Velocity 148.0 cm/s AV Mean Gradient 10.0 mmHg AV Velocity Time Integral 43.4 cm LVOT Peak Velocity 121.0 cm/s LVOT Peak Gradient 5.9 mmHg LVOT Mean Velocity 84.7 cm/s LVOT Mean Gradient 3.0 mmHg LVOT Velocity Time Integral 26.3 cm LVOT Stroke Volume 100.0 cm AV Area Cont Eq vti 2.3 cm AV Area Cont Eq pk 2.0 cm MV Peak Velocity 123.0 cm/s MV Peak Gradient 6.1 mmHg MV Mean Velocity 67.8 cm/s MV Mean Gradient 2.0 mmHg Mitral E Point Velocity 103.0 cm/s Mitral A Point Velocity 84.4 cm/s Mitral E to A Ratio 1.2 MV PHT Velocity 129.0 cm/s MV Deceleration [place] 667.0 cm/s MV Pressure Half Time 58.0 ms MV Area PHT 3.8 cm MV Deceleration Time 211.0 ms TR Peak Velocity 164.0 cm/s TR Peak Gradient 10.8 mmHg Right Atrial Pressure 5.0 mmHg Pulmonary Artery Systolic Pressu 15.8 mmHg Right Ventricular Systolic Press 15.8 mmHg PV Peak Velocity 132.0 cm/s PV Peak Gradient 7.0 mmHg PV Mean Velocity 88.4 cm/s PV Mean Gradient 4.0 mmHg PV Velocity Time Integral 28.1 cm LV E' Lateral Velocity 11.1 cm/s Mitral E to LV E' Lateral Ratio 9.3 LV E' Septal Velocity 9.3 cm/s Mitral E to LV E' Septal Ratio 11.1
--- NOTE | 2017-04-01 15:06 | PN- Neurology ---
Subjective Subjective: no headache no vertigo Objective Vital Signs and I&Os Vital Signs Date Time Temp Pulse Resp B/P B/P Pulse O2 O2 Flow FiO2 Mean Ox Delivery Rate 04/01 0800 98.2 78 20 150/90 96 Room Air 03/31 2330 98.6 60 18 148/98 95 Trach Mask 03/31 1601 98.9 73 18 140/74 96 Intake & Output 04/01 1600 04/01 0800 04/01 0000 03/31 1600 03/31 0800 03/31 0000 Intake Total 480 240 500 260 260 Output Total 200 200 400 300 300 Balance 280 -200 -160 500 -40 -40 Intake, IV 20 20 Intake, Oral 480 240 500 240 240 Number 1 1 Bowel Movements Output, Urine 200 200 400 300 300 Patient 300 lb Weight Weight Reported by Patient Measurement Method moving left upper extremity better mild drift and fine motor difficulty Current Medications: Current Medications Sig/Fermin Start time Last Medication Dose Route Stop Time Status Admin Acetaminophen 650 MG Q6P PRN 03/30 1445 AC PO Atorvastatin Calcium 80 MG 1700 03/31 1700 AC 03/31 PO 1733 Dipyridamole/Aspirin 1 CAP BID 03/30 2200 AC 04/01 PO 0830 Enoxaparin Sodium 40 MG DAILY 03/31 1000 AC 04/01 SC 0831 Fenofibrate 48 MG DAILY 03/31 1000 AC 04/01 PO 0832 Niacin 500 MG DAILY 03/31 1000 AC 04/01 PO 0831 Nicotine 14 MG DAILY 03/30 1733 AC TOP Patient Medication 1 ED .STK-MED ONE 04/01 1341 DC Teaching ED 04/01 1342 Potassium Chloride 40 MEQ ONCE ONE 04/01 1315 DC PO 04/01 1316 Results Last 24 Hours of Lab Results: Laboratory Tests 04/01 0605 Chemistry Sodium (137 - 145 mmol/L) 141 Potassium (3.5 - 5.1 mmol/L) 3.5 Chloride (98 - 107 mmol/L) 104 Carbon Dioxide (22 - 30 mmol/L) 26 Anion Gap (5 - 16) 11 BUN (9 - 20 mg/dL) 13 Creatinine (0.7 - 1.2 mg/dL) 0.8 Estimated GFR (>60 ml/min) > 60 BUN/Creatinine Ratio (7 - 25 %) 16.3 Assessment/Plan Assessment: cerebrovascular event, improving Plan: OT smoking cessation
--- NOTE | 2017-04-01 16:09 | Discharge Summary ---
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 Pt reported going to bed in his normal state of health, only to wake up with left sided weakness with numbness and tingling. Denied any other focal neurological deficits. Vital Signs Date Time Temp Pulse Resp B/P B/P Pulse O2 O2 Flow FiO2 Mean Ox Delivery Rate 03/30 1609 98.0 78 20 166/84 98 Room Air 03/30 1404 97.4 72 16 190/104 98 Room Air 03/30 1218 98.7 75 16 143/96 94 Room Air Physical Exam: Skin No Breakdown, No Significant Lesion HEENT Atraumatic, PERRLA, EOMI, Mucous Membr. moist/pink Neck Supple, No thryomegaly Lymphatic Cervical nl Cardiovascular Regular Rate, Normal S1, Normal S2, No Murmurs Lungs Clear to Auscultation, Normal Air Movement Abdomen Normal Bowel Sounds, Soft, No Tenderness, No Hepatospenomegaly Neurological Normal Gait, Normal Speech, Sensation Intact, Cranial Nerves 3-12 NL (babinski negative), Reflexes 2+, strength:5/5 LUE, 3-4/5 LLE, 5/5 RLE & RUE, visual beavers intact., cerebeller function inatct with no dysmetria or dysdiadokinesia noted Extremities No Cyanosis, No Edema, Normal Pulses Vascular Pulses Symmetrical SERVICE DATE: 03/30/17-1208 EXAM TYPE: CAT - CT HEAD WO IV CONTRAST EXAMINATION: CT HEAD WITHOUT CONTRAST CLINICAL INFORMATION: Weakness. Assess for CVA. COMPARISON: CT scan of the head 12/16/2016. TECHNIQUE: Contiguous axial imaging was performed from the skull base to vertex without intravenous administration of contrast. DLP: 722.22 mGy-cm FINDINGS: There are new areas of loss of gipson-white differentiation in the right middle and inferior frontal gyri, which may be consistent with evolving acute/subacute infarcts. The study redemonstrates relatively extensive low attenuation in the periventricular and subcortical white matter bilaterally as well as in the high right parietal region, consistent with sequelae of chronic microvascular ischemic disease and old infarcts. There are focal small densities in the anterior right superior frontal gyrus and in the right centrum semiovale which may be consistent with small foci of calcification or hemorrhage. There is no mass effect or midline shift. There are no extra-axial fluid collections. There is ex-vacuo dilatation of the anterior body of the left lateral ventricle secondary to chronic infarcts in the left frontal lobe adjacent to it. There are moderate atheromatous calcifications in the cavernous internal carotid arteries bilaterally and in the left vertebral artery. There are no acute osseous or soft tissue abnormalities. The mastoid air cells and visualized portions of the paranasal sinuses are well aerated. IMPRESSION: 1. There is new loss of gipson-white differentiation in the right middle and inferior frontal gyri, consistent with evolving acute/subacute infarcts. This could be further evaluated with MRI. 2. Small foci of increased density in the right superior frontal gyrus and right centrum semiovale may be consistent with focal calcifications versus small hemorrhages. 3. There is a background of sequelae of prior multifocal infarcts and microvascular ischemic disease. 4. This critical result was discussed with Kandice Rizzo by telephone on 03/30/2017 12:46 PM and it was ascertained that the content and urgency of the report was understood at the time of direct communication. DICTATED BY: KYLER PAUL MD Carotid Doppler: IMPRESSION: 1. RIGHT: No significant stenosis of the proximal right internal carotid artery by velocity criteria. (Prior velocity of the right internal carotid artery in September 2016 was 128 cm/s which corresponded with a 50-79% stenosis). 2. LEFT: No significant stenosis of the proximal left internal carotid artery by velocity criteria. Although velocities within the proximal left internal carotid artery are mildly elevated, there is no plaque to suggest stenosis.(Prior velocity of the left internal carotid artery in September 2016 was 125 cm/s which corresponded with a 50-79% stenosis). 3. No evidence for hemodynamically significant stenosis in the external carotid arteries. Overall, no significant stenoses are identified. If clinically indicated, further evaluation with neck CTA may be obtained. DICTATED BY: BOYCE MD,DOREEN Pt was then admitted to telemetry for evaluation and management of recurrent CVA. He was not a candidate for tpa as onset of symptoms was not known. The following issues were addressed during Telemetry stay: #CVA (recurrent) Positive CT finding of acute/subacute cerebral infarct with focality of left lower extremity weakness. Pt was monitored on telemetry with no arythmias or any acute telemetry events noted during stay. Neuro checks were conducted q4h with noted improvement and no new or worsening focal neurological deficit was noted. His DAPT was swicthed form Plavix/ASA to Aggrenox and his Rosuvatatin switched to Atorvastatin 80mg (these were based in neurologist reccomendations). Patient passed bedisde swallow eval and underwent PT session with disposition for home PT. Echo obtained was unremarkable for any thrombus or valvular pathology. Neurology was also on board and reccomended continuing medical management. #History of hypertension Lisinopril and hydrochlorothiazide was initially held to allow permissive hypertension of systolic around 160-180. His HTN medication were restarted upon discharge. #History of hyperlipidemia Switched from Rosuvastatin to Atorvastatin 80 mg daily. #History of tobacco abuse Pt was extensively counseled on smoking cessation and was informed the high risk of recurrent CVA associated with smoking. Nicotine patch 14 mg daily was administered during hospital stay. # history of symptomatic bradycardia Pt has a dual chamber permanent pacemaker. No significant bradycardia was noted during hospital stay. Allergies: Coded Allergies: NO KNOWN ALLERGIES (07/10/15) Significant Procedures: SERVICE DATE: 03/31/17- EXAM TYPE: CARD - ECHOCARDIOGRAM KACI MAK Age: 46 : 1970 Gender: M Exam Date: 03/31/2017 18:34 Exam Location: [address] [place] [address] Ht (in): 74 Wt (lb): 300 BSA: 2.72 BP: 179 / 112 Ordering Physician: BOB DUONG MD Referring Physician: Daniel Xavier MD, PhD Technologist: Marija Suarez RDCS Room Number: 172 Indications: STROKE Rhythm: Sinus Technical Quality: technically limited FINDINGS Left Ventricle Normal left ventricular size with mild to moderate left ventricular hypertrophy. Normal systolic function with no obvious regional wall motion abnormalities. Normal left ventricular diastolic filling pattern for age. The ejection fraction is visually estimated at 60%. Right Ventricle The right ventricle is normal in size and function. A pacemaker lead is noted in the right cardiac chambers. Right Atrium The right atrium is normal in size. Left Atrium The left atrium is mildly enlarged. The interatrial septum is intact. Mitral Valve The mitral valve is normal in structure and function. There is no mitral regurgitation. Aortic Valve Structurally normal aortic valve without significant sclerosis or stenosis. There is no aortic regurgitation. Tricuspid Valve The tricuspid valve is normal in structure and function. There is trace tricuspid regurgitation. Pulmonary artery systolic pressure is normal. Pulmonic Valve Structurally normal pulmonic valve. There is trace pulmonic regurgitation. Pericardium Normal pericardium without effusion. No pleural effusion. Great Vessels Normal aortic root dimension. The aortic arch and great vessels are well seen and are normal. CONCLUSIONS 1. Normal EF of 60%. 2. Mild to moderate left ventricular hypertrophy. 3. Mild left atrial enlargment. 4. Pacemaker lead noted. 5. Trace tricuspid regurgitation. 6. Trace pulmonic regurgitation. Daniel Xavier M.D. (Electronically Signed) Final Date: 01 Apr 2017 14:21 MEASUREMENTS (Male / Female) Normal Values 2D ECHO LV Diastolic Diameter PLAX 5.5 cm 4.2 - 5.9 / 3.9 - 5.3 cm LV Systolic Diameter PLAX 2.4 cm 2.1 - 4.0 cm LV Fractional Shortening PLAX 56.4 % 25 - 46 % LV Ejection Fraction 2D Teich 86.3 % IVS Diastolic Thickness 1.4 cm LVPW Diastolic Thickness 1.4 cm LV Relative Wall Thickness 0.5 RV Internal Dim ED PLAX 3.3 cm 1.9 - 3.8 cm LVOT Diameter 2.2 cm Aortic Root Diameter 3.0 cm LA Systolic Diameter LX 4.1 cm 3.0 - 4.0 / 2.7 - 3.8 cm LA Volume 48.0 cm 18 - 58 / 22 - 52 cm Ascending Aorta Diameter 3.2 cm DOPPLER AV Peak Velocity 231.0 cm/s AV Peak Gradient 21.3 mmHg AV Mean Velocity 148.0 cm/s AV Mean Gradient 10.0 mmHg AV Velocity Time Integral 43.4 cm LVOT Peak Velocity 121.0 cm/s LVOT Peak Gradient 5.9 mmHg LVOT Mean Velocity 84.7 cm/s LVOT Mean Gradient 3.0 mmHg LVOT Velocity Time Integral 26.3 cm LVOT Stroke Volume 100.0 cm AV Area Cont Eq vti 2.3 cm AV Area Cont Eq pk 2.0 cm MV Peak Velocity 123.0 cm/s MV Peak Gradient 6.1 mmHg MV Mean Velocity 67.8 cm/s MV Mean Gradient 2.0 mmHg Mitral E Point Velocity 103.0 cm/s Mitral A Point Velocity 84.4 cm/s Mitral E to A Ratio 1.2 MV PHT Velocity 129.0 cm/s MV Deceleration [place] 667.0 cm/s MV Pressure Half Time 58.0 ms MV Area PHT 3.8 cm MV Deceleration Time 211.0 ms TR Peak Velocity 164.0 cm/s TR Peak Gradient 10.8 mmHg Right Atrial Pressure 5.0 mmHg Pulmonary Artery Systolic Pressu 15.8 mmHg Right Ventricular Systolic Press 15.8 mmHg PV Peak Velocity 132.0 cm/s PV Peak Gradient 7.0 mmHg PV Mean Velocity 88.4 cm/s PV Mean Gradient 4.0 mmHg PV Velocity Time Integral 28.1 cm LV E' Lateral Velocity 11.1 cm/s Mitral E to LV E' Lateral Ratio 9.3 LV E' Septal Velocity 9.3 cm/s Mitral E to LV E' Septal Ratio 11.1 DICTATED BY: MIRZA GRIGSBY PhD,DANIEL Subramanian Disposition Summary Disposition Principal Diagnosis: CVA Additional Diagnosis: Tobacco abuse Discharge Disposition: home health services Discharge Instructions General Discharge Information Code Status: Full Code Patient's Diet: regular Patient's Activity: As tolerated Follow-Up Instructions/Appts: Pt was to f/u with PCP within 1 week. Pt was counseled and instructed to talk to his PCP regarding smoking cessation Medications at Discharge Discharge Medications: Stop taking the following medications: Clopidogrel Bisulfate (Clopidogrel) 75 MG TABLET ORAL DAILY Qty = 90 Rosuvastatin Calcium (Crestor) 40 MG TABLET ORAL DAILY Qty = 90 Aspirin (Aspirin*) 81 MG TAB.CHEW ORAL DAILY Continue taking these medications: Niacin (Niacin) 500 MG CAPSULE.ER 1 Capsule ORAL DAILY Days = 30 Comments: Last Taken: 04/01/17 Time: 830 AM Lisinopril (Lisinopril) 40 MG TABLET 1 Tablet ORAL DAILY Qty = 90 Comments: NOT GIVEN Fenofibrate (Fenofibrate) 54 MG TABLET 1 Tablet ORAL DAILY Qty = 30 Comments: Last Taken: 04/01/17 Time: 830 AM Hydrochlorothiazide (Hydrochlorothiazide) 25 MG TABLET 1 Tablet ORAL DAILY Qty = 90 Comments: NOT GIVEN Meclizine HCl (Meclizine HCl) 12.5 MG TABLET 1 Tablet ORAL THREE TIMES DAILY as needed for VERTIGO Qty = 30 Comments: NOT GIVEN Start taking the following new medications: Dipyridamole W/ Aspirin (Aggrenox 25 MG-200 MG Capsule) 25 MG-200 MG CPMP.12HR 1 Capsule ORAL TWICE DAILY Qty = 60 No Refills Comments: Last Taken: 04/01/17 Time: 830 AM Atorvastatin Calcium (Atorvastatin Calcium) 80 MG TABLET 1 Tablet ORAL DAILY Qty = 30 No Refills Comments: Last Taken: 03/31/17 Time: 530 PM Copies To: GAGE LOTT APRN
== END 2017-04-01 17:20 | disposition home health service (06) | DRG 45 ==
LOC: DELPENDDIS → ERH 12:06 → 1NO 13:46 → ERHI 13:46 → ERH 13:46 → ERHI 14:03 → ERH 14:03 → ENRESERV 14:48 → ERHI 18:21 → ENTRNSPT 18:44 → 1NO 19:18 → CMPTRNSPT 03-31 07:21 → 1NO 03-31 08:45 → ENPENDDIS 04-01 10:59 → 1NO 04-01 17:20
PROVIDERS: Emergency Medicine; ADMIT Hospitalist
DX: I63.9 Cerebral infarction, unspecified (principal); I69.354 Hemiplegia and hemiparesis following cerebral infarction affecting left non-dominant side; G81.94 Hemiplegia, unspecified affecting left nondominant side; I10 Essential (primary) hypertension; E78.5 Hyperlipidemia, unspecified; F17.210 Nicotine dependence, cigarettes, uncomplicated; Z95.0 Presence of cardiac pacemaker
CPT/HCPCS: 1NP; 36415; 82436; 93005; 93010; 93306; 97110-GO; 97116-GO; 97161-GP; 97165-GO; 97530-GO; J1650; J3490

== ENCOUNTER 2017-04-12 16:53 | Emergency (ER) | payer OTHER ==
[~2017-04-12] VITALS: Ht 188 cm; Wt 142.9 kg
[~2017-04-12 16:53] MED LIST changes: +AGGRENOX 25 MG1 EACH PO; +ASPIRIN81 M4 PO; +MECLIZINE HCL12.5 M1 PO
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
--- NOTE | 2017-04-12 18:48 | CT SCAN REPORT ---
EXAMINATION: CT HEAD WITHOUT CONTRAST CLINICAL INFORMATION: Weakness and history of stroke. COMPARISON: Head CT from 03/30/2017. TECHNIQUE: Contiguous axial imaging was performed from the skull base to vertex without intravenous administration of contrast. DLP: 620.2 mGy-cm FINDINGS: There is no evidence of acute intracranial hemorrhage or territorial infarction. No abnormal mass effect or midline shift is seen. Lovell to white matter differentiation is well preserved. No extra-axial fluid collections are identified. There is no hydrocephalus. There is ex vacuo dilatation of the frontal horn of the left lateral ventricle. Encephalomalacia is again noted in the anteroinferior left frontal lobe and superior right frontoparietal lobes corresponding to chronic infarcts. Moderate chronic white matter microangiopathic changes are again visible as well. The osseous structures and soft tissues are normal. The mastoid air cells and visualized portions of the paranasal sinuses are well aerated. IMPRESSION: No acute intracranial hemorrhage or large territorial infarction. Given chronic white matter disease and scattered chronic infarcts in the left frontal lobe and upper right frontoparietal lobes, the possibility of an underlying acute ischemic infarct cannot be conclusively ruled out.
--- NOTE | 2017-04-12 19:13 | RADIOLOGY REPORT ---
EXAMINATION: XR PORTABLE CHEST CLINICAL INFORMATION: Weakness. Rule out pneumonia. COMPARISON: Chest CT dated 09/25/2016. TECHNIQUE: Portable frontal view of the chest was obtained. FINDINGS: The cardiac silhouette is prominent with a dual-chamber pacemaker device in place. Mediastinal contours are normal. The right lung is clear. There is questionable mild patchy opacity in the retrocardiac left lower lobe, difficult to evaluate given portable technique and low lung volumes. No definite pleural effusions are seen. IMPRESSION: Question small left lower lobe retrocardiac opacity which may reflect subsegmental atelectasis, early pneumonia, or possibly aspiration in the correct clinical setting. Correlation with auscultation. A repeat PA and lateral chest x-ray with full inspiration could be considered for more complete evaluation.
[2017-04-12 19:16] LABS: ABSOLUTE BASOPHIL COUNT 0 /CUMM (0.0-0.2); ABSOLUTE EOSINOPHIL COUNT 0.2 /CUMM (0.0-0.7); ABSOLUTE GRANULOCYTE CT 5.3 /CUMM (1.4-6.5); ABSOLUTE LYMPH COUNT 2.7 /CUMM (1.2-3.4); ABSOLUTE MONOCYTE COUNT 0.5 /CUMM (0.10-0.60); BASOPHIL % 0.5 % (0.0-2.0); EOSINOPHIL % 2.1 % (0-5); GRANULOCYTE % 60.8 % (42.2-75.2); HEMATOCRIT 40.5 % (42-52); MEAN CORPUSCULAR HGB 27.2 PG (27.0-31.0); MEAN CORPUSCULAR HGB CONC 33.2 G/DL (33.0-37.0); PLATELET COUNT 266 /CUMM (130-400); RBC DISTRIBUTION WIDTH 14.7 % (11.5-14.5); RED BLOOD CELL CT 4.94 /CUMM (4.70-6.10); WHITE BLOOD CELL COUNT 8.8 /CUMM (4.8-10.8)
[2017-04-13 15:21] VITALS: BP 162/86
--- NOTE | 2017-04-13 19:11 | NUR ---
04/13 CASE MGMT- SPOKE WITH VALENTINA FROM [facility] AWARE PT WAS SEEN IN ER AND D/C HOME AND WILL ATTEMPT TO SEE PT TOMORROW.
== END 2017-04-13 16:19 ==
LOC: ERH 16:53
PROVIDERS: Emergency Medicine
DX: R53.1 Weakness (principal)
CPT/HCPCS: 86618; 81003; 87086; 93005; 93010; G0480

== ENCOUNTER 2017-04-17 21:51 | Inpatient (IN) | payer OTHER ==
[~2017-04-17] VITALS: Ht 188 cm; Wt 136.1 kg
--- NOTE | 2017-04-17 21:59 | NUR ---
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
--- NOTE | 2017-04-17 21:59 | NUR ---
PT BIBA C/O INCREASED LEFT SIDED DEFICITS. PT CALLED 911 HIMSELF, PT HAS HX OF A PREVIOUS CVA, AND HAS HX OF LEFT LEG DEFICITS. PT STATES HE NOW IS HAVING WEAKNESS IN LEFT ARM. SLIGHT FACIAL DROOP NOTED ON LEFT SIDE. PT CANNOT RECALL WHEN HE LAST FELT NORMAL, LIVES ALONE, NO FAMILY TO COROBORATE STORY. PER EMS PT HAS BEEN NON-COMPLAINT WITH HOME MEDICATIONS.
--- NOTE | 2017-04-17 22:01 | NUR ---
PT IS WHEELCHAIR BOUND AT BASELINE
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
--- NOTE | 2017-04-17 22:03 | NUR ---
SAMIRA DAVIS AT BEDSIDE FOR PT EVAL
--- NOTE | 2017-04-17 22:19 | NUR ---
EKG IN PROGRESS
--- NOTE | 2017-04-17 22:32 | NUR ---
PT'S BLOOD DRAWN AT 2229 1LAV,1BLU,1SST AND SENT TO LAB
[2017-04-17 22:35] LABS: ABSOLUTE BASOPHIL COUNT 0 /CUMM (0.0-0.2); ABSOLUTE EOSINOPHIL COUNT 0.1 /CUMM (0.0-0.7); ABSOLUTE GRANULOCYTE CT 6.1 /CUMM (1.4-6.5); ABSOLUTE LYMPH COUNT 2.1 /CUMM (1.2-3.4); ABSOLUTE MONOCYTE COUNT 0.5 /CUMM (0.10-0.60); BASOPHIL % 0.4 % (0.0-2.0); EOSINOPHIL % 0.9 % (0-5); GRANULOCYTE % 69.9 % (42.2-75.2); HEMATOCRIT 40.7 % (42-52); MEAN CORPUSCULAR HGB 26.8 PG (27.0-31.0); MEAN CORPUSCULAR HGB CONC 32.9 G/DL (33.0-37.0); MEAN CORPUSCULAR VOLUME 81.3 FL (80.0-94.0); MEAN PLATELET VOLUME 9.5 FL (7.4-10.4); PLATELET COUNT 250 /CUMM (130-400); RBC DISTRIBUTION WIDTH 14.8 % (11.5-14.5); RED BLOOD CELL CT 5.01 /CUMM (4.70-6.10); WHITE BLOOD CELL COUNT 8.7 /CUMM (4.8-10.8)
[2017-04-17 22:41] LABS: PT 12.1 SEC (9.4-12.5)
--- NOTE | 2017-04-17 23:39 | NUR ---
PT TO AND FROM CT SCAN
--- NOTE | 2017-04-17 23:51 | CT SCAN REPORT ---
EXAMINATION: CT HEAD WITHOUT CONTRAST CLINICAL INFORMATION: Left-sided weakness. COMPARISON: Noncontrast head CT 04/12/2017. TECHNIQUE: Contiguous axial imaging was performed from the skull base to vertex without intravenous administration of contrast. DLP: 935 mGy-cm FINDINGS: Limited exam secondary to diffuse motion abnormality which degrades image quality, limiting complete evaluation of the brain, notably the brain, notably the Noncontrast CT imaging of the brain demonstrates age-appropriate generalized parenchymal volume loss with proportional prominence of the sulci and ventricles. There is no acute intracranial hemorrhage, mass or mass effect or abnormal extra-axial fluid collections. There are no focal areas of hypoattenuation in a vascular distribution to suggest acute transcortical ischemia. Areas of hypoattenuation within the periventricular and deep cortical white matter are nonspecific but could reflect sequela of moderate to severe chronic microvascular ischemia. Redemonstrated are focal regions of encephalomalacia within the right frontal and right parietal lobes, corresponding to regions of remote infarcts. No acute calvarial abnormality. The mastoid air cells and visualized portions of the paranasal sinuses are well-aerated. IMPRESSION: 1. Diffuse motion abnormality degrades image quality, limiting complete evaluation of the brain, notably the posterior fossa and cerebellum. There are otherwise, no significant interval changes in the appearance of the brain. Redemonstrated are focal regions of encephalomalacia within the right frontal and right parietal lobes, corresponding to regions of chronic infarction. There is no acute intracranial hemorrhage, mass or mass effect or extra-axial fluid collections. 2. No focal regions of hypoattenuation within a vascular distribution to suggest acute transcortical ischemia. However, please note that MRI would be more sensitive in evaluating for acute ischemia. 2. Generalized parenchymal volume loss and sequela of moderate to severe chronic microvascular ischemia. This critical result was discussed with Dr. Kt Berry at 11:47 PM on 04/17/2017 and it was ascertained that the content and urgency of the report was understood at the time of direct communication.
--- NOTE | 2017-04-18 01:22 | NUR ---
HOUSE STAFF AT BEDSIDE FOR PT EVAL
--- NOTE | 2017-04-18 01:41 | NUR ---
PT'S RM ASSIGNMENT 179 BED 1
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
--- NOTE | 2017-04-18 02:10 | NUR ---
IV EST #20 IN [facility]. REPORT GIVEN AT BEDSIDE TO MARIOLA JACKMAN
[2017-04-18 07:42] LABS: ABSOLUTE BASOPHIL COUNT 0 /CUMM (0.0-0.2); ABSOLUTE EOSINOPHIL COUNT 0.1 /CUMM (0.0-0.7); ABSOLUTE GRANULOCYTE CT 4.6 /CUMM (1.4-6.5); ABSOLUTE LYMPH COUNT 2.3 /CUMM (1.2-3.4); ABSOLUTE MONOCYTE COUNT 0.6 /CUMM (0.10-0.60); BASOPHIL % 0.5 % (0.0-2.0); EOSINOPHIL % 1.7 % (0-5); GRANULOCYTE % 59.9 % (42.2-75.2); MEAN CORPUSCULAR HGB CONC 32.8 G/DL (33.0-37.0); MEAN CORPUSCULAR VOLUME 82.4 FL (80.0-94.0); MEAN PLATELET VOLUME 10.3 FL (7.4-10.4); PLATELET COUNT 217 /CUMM (130-400); RBC DISTRIBUTION WIDTH 14.6 % (11.5-14.5); RED BLOOD CELL CT 4.73 /CUMM (4.70-6.10); WHITE BLOOD CELL COUNT 7.6 /CUMM (4.8-10.8)
[2017-04-18 08:37] VITALS: BP 158/100
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
--- NOTE | 2017-04-18 11:43 | PN- Att Addend ---
Attending Addendum Attending Brief Note Patient seen and examined. Plan of care discussed with the medical team and the patient. Available lab work and radiology test reports were reviewed. Patient is slightly drowsy but able to answer questions. He complains of left-sided weakness. He is requesting to eat however he is currently nothing by mouth because he failed swallow evaluation. Vital Signs Date Time Temp Pulse Resp B/P B/P Pulse O2 O2 Flow FiO2 Mean Ox Delivery Rate 04/18 0837 98.8 69 20 158/100 95 Room Air 04/18 0211 98.7 73 19 135/58 96 Room Air 04/17 2349 99.0 71 20 137/60 96 Room Air 04/17 2156 100.2 86 17 160/81 95 Room Air Intake & Output 04/18 1600 04/18 0800 04/18 0000 Intake Total 240 Output Total 250 Balance -10 Intake, IV 240 Intake, Oral 0 Output, Urine 250 Patient 300 lb 275 lb Weight Weight Reported by Patient Estimated Measurement Method Exam: General: Patient awake but drowsy and partially oriented without any distress CVS: S1 plus S2 without any murmur or gallops Chest: Few scattered crepitation without any wheeze. There is no respiratory distress. Abdomen: Soft nontender, bowel sound present, no guarding or rebound MEDICINE AIDE: Awake but drowsy and partially oriented with 3/5 weakness of left side and the right facial droop. follows command appropriately; tongue is central Extremities: No edema; no clubbing or cyanosis noted Laboratory Tests 04/18 04/17 0630 2229 Chemistry Sodium (137 - 145 mmol/L) 140 142 Potassium (3.5 - 5.1 mmol/L) 3.7 3.1 L Chloride (98 - 107 mmol/L) 102 102 Carbon Dioxide (22 - 30 mmol/L) 29 27 Anion Gap (5 - 16) 9 12 BUN (9 - 20 mg/dL) 14 14 Creatinine (0.7 - 1.2 mg/dL) 0.9 0.9 Estimated GFR (>60 ml/min) > 60 > 60 BUN/Creatinine Ratio (7 - 25 %) 15.6 15.6 Glucose (65 - 99 mg/dL) 116 H Hemoglobin A1c (4.2 - 5.8 %) Pending Calcium (8.4 - 10.2 mg/dL) 9.6 Total Bilirubin (0.2 - 1.3 mg/dL) 0.5 AST (17 - 59 U/L) 25 ALT (21 - 72 U/L) 42 Alkaline Phosphatase (< 127 U/L) 76 Troponin I (<0.11 ng/ml) 0.02 0.02 Total Protein (6.3 - 8.2 g/dL) 7.1 Albumin (3.5 - 5.0 g/dL) 4.3 Globulin (1.9 - 4.2 gm/dL) 2.8 Albumin/Globulin Ratio (1.1 - 2.2 %) 1.5 Triglycerides (<150 mg/dL) 212 H Cholesterol (< 200 MG/DL) 247 H LDL Cholesterol, Calc (65 - 129 mg/dL) 171 H HDL Cholesterol (40 - 60 mg/dL) 34 L Cholesterol/HDL Ratio (0.00 - 4.88 %) 7.3 H Coagulation PT (9.4 - 12.5 SEC) 12.1 INR (0.90 - 1.17) 1.15 Hematology CBC w Diff NO MAN DIFF REQ NO MAN DIFF REQ WBC (4.8 - 10.8 /CUMM) 7.6 8.7 RBC (4.70 - 6.10 /CUMM) 4.73 5.01 Hgb (14.0 - 18.0 G/DL) 12.8 L 13.4 L Hct (42 - 52 %) 39.0 L 40.7 L MCV (80.0 - 94.0 FL) 82.4 81.3 MCH (27.0 - 31.0 PG) 27.0 26.8 L RDW (11.5 - 14.5 %) 14.6 H 14.8 H Plt Count (130 - 400 /CUMM) 217 250 MPV (7.4 - 10.4 FL) 10.3 9.5 Gran % (42.2 - 75.2 %) 59.9 69.9 Lymphocytes % (20.5 - 51.1 %) 30.2 23.6 Monocytes % (1.7 - 9.3 %) 7.7 5.2 Eosinophils % (0 - 5 %) 1.7 0.9 Basophils % (0.0 - 2.0 %) 0.5 0.4 Absolute Granulocytes (1.4 - 6.5 /CUMM) 4.6 6.1 Absolute Lymphocytes (1.2 - 3.4 /CUMM) 2.3 2.1 Absolute Monocytes (0.10 - 0.60 /CUMM) 0.6 0.5 Absolute Eosinophils (0.0 - 0.7 /CUMM) 0.1 0.1 Absolute Basophils (0.0 - 0.2 /CUMM) 0 0 PUBS MCHC (33.0 - 37.0 G/DL) 32.[address] Head 1. Diffuse motion abnormality degrades image quality, limiting complete evaluation of the brain, notably the posterior fossa and cerebellum. There are otherwise, no significant interval changes in the appearance of the brain. Redemonstrated are focal regions of encephalomalacia within the right frontal and right parietal lobes, corresponding to regions of chronic infarction. There is no acute intracranial hemorrhage, mass or mass effect or extra-axial fluid collections. 2. No focal regions of hypoattenuation within a vascular distribution to suggest acute transcortical ischemia. However, please note that MRI would be more sensitive in evaluating for acute ischemia. 2. Generalized parenchymal volume loss and sequela of moderate to severe chronic microvascular ischemia. This critical result was discussed with Dr. Kt Berry at 11:47 PM on 04/17/2017 and it was ascertained that the content and urgency of the report was understood at the time of direct communication. 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 Agree with starting aspirin and Plavix. * Obtain MRI/MRA * Obtain echo with bubble study * Patient refused to do Lovenox therefore will switch to Venodyne's
[2017-04-18 16:39] VITALS: BP 160/100
--- NOTE | 2017-04-18 16:47 | RADIOLOGY REPORT ---
EXAMINATION: XR PORTABLE CHEST CLINICAL INFORMATION: Cough and low-grade fever. COMPARISON: CXR from 04/12/[address] from 09/24/2016. TECHNIQUE: Portable frontal view of the chest was obtained. FINDINGS: Lungs are hypoinflated and clear. The trachea is chronically narrowed in its transverse dimension -- likely a saber-sheath configuration of the trachea. No pulmonary infiltrate or pleural effusion. Cardiac silhouette is mildly enlarged. The dual-chamber cardiac pacing leads remain in their expected positions. The bones are unremarkable. IMPRESSION: 1. No acute findings; no evidence of pneumonia. 2. Mild cardiomegaly without pulmonary edema.
[2017-04-18 23:37] VITALS: BP 160/100
[2017-04-19 01:00] VITALS: BP 152/92
[2017-04-19 08:46] LABS: ABSOLUTE BASOPHIL COUNT 0 /CUMM (0.0-0.2); ABSOLUTE EOSINOPHIL COUNT 0.1 /CUMM (0.0-0.7); ABSOLUTE GRANULOCYTE CT 4.9 /CUMM (1.4-6.5); ABSOLUTE LYMPH COUNT 1.7 /CUMM (1.2-3.4); ABSOLUTE MONOCYTE COUNT 0.5 /CUMM (0.10-0.60); BASOPHIL % 0.2 % (0.0-2.0); GRANULOCYTE % 67.7 % (42.2-75.2); HEMATOCRIT 38.1 % (42-52); MEAN CORPUSCULAR HGB 27.1 PG (27.0-31.0); MEAN CORPUSCULAR HGB CONC 33.1 G/DL (33.0-37.0); MEAN CORPUSCULAR VOLUME 81.7 FL (80.0-94.0); MEAN PLATELET VOLUME 9.7 FL (7.4-10.4); PLATELET COUNT 214 /CUMM (130-400); RBC DISTRIBUTION WIDTH 14.6 % (11.5-14.5); RED BLOOD CELL CT 4.66 /CUMM (4.70-6.10); WHITE BLOOD CELL COUNT 7.3 /CUMM (4.8-10.8)
--- NOTE | 2017-04-19 09:09 | PN- Housestaff ---
Subjective Follow-up For: CVA Tele-Events Since Last Visit: Normal sinus rhythm, heart rate between 77-95 Subjective: She seen and examined this morning. He was lying comfortably in bed in no acute distress. Continues to have slurred speech, left-sided weakness, he is scheduled for a ROSS today, neurology had recommended MRI and MRA of brain. Otherwise hemodynamically stable, vitals within normal limits, left sending Review of Systems Constitutional: Denies: chills, fever. Cardiovascular: Denies: chest pain, palpitations. Respiratory: Denies: cough, short of breath, sputum production. Gastrointestinal: Denies: abdominal pain, constipation, diarrhea, nausea, vomiting. Objective Last 24 Hrs of Vital Signs/I&O Vital Signs Date Time Temp Pulse Resp B/P B/P Pulse O2 O2 Flow FiO2 Mean Ox Delivery Rate 04/19 1215 81 158/88 04/19 0915 98.5 81 20 158/88 94 Room Air 04/19 0100 70 152/92 04/18 2337 98.7 67 24 160/100 92 04/18 1733 66 160/100 04/18 1639 98.9 66 22 160/100 93 Room Air Intake & Output 04/19 1600 04/19 0800 04/19 0000 Intake Total 0 1050 Output Total 400 1240 Balance -400 -190 Intake, IV 0 600 Intake, Oral 0 450 Number 0 0 Bowel Movements Output, Urine 400 1240 Physical Exam General Appearance: Alert, Oriented X3, Cooperative, No Acute Distress Cardiovascular: Regular Rate, Normal S1, Normal S2, No Murmurs Lungs: Clear to Auscultation, Normal Air Movement Abdomen: Normal Bowel Sounds, Soft, No Tenderness Neurological: slurred speech, left facial droop, pupils reactive to light bilaterally, done in uvula sent to, left upper extremity power 3-5, left lower extremity power 4 over 5, Extremities: No Clubbing, No Cyanosis, No Edema, No Tenderness/Swelling Current Medications: Current Medications Sig/Fermin Start time Last Medication Dose Route Stop Time Status Admin Acetaminophen 650 MG Q6P PRN 04/18 0145 AC PO Aspirin 81 MG DAILY 04/18 1429 AC 04/19 PO 1215 Atorvastatin Calcium 80 MG 1700 04/18 1700 AC 04/18 PO 1733 Clopidogrel Bisulfate 75 MG DAILY 04/18 1429 AC 04/19 PO 1214 Dipyridamole/Aspirin 1 CAP BID 04/18 1000 DC 04/18 PO 0953 Enoxaparin Sodium 40 MG DAILY 04/18 1000 AC 04/19 SC 1215 Fenofibrate 48 MG DAILY 04/18 1000 AC 04/19 PO 1215 Guaifenesin/ 10 ML Q6P PRN 04/19 0100 AC 04/19 Dextromethorphan PO 1214 Lisinopril 5 MG DAILY 04/18 1438 AC 04/19 PO 1215 Meclizine HCl 12.5 MG TID PRN 04/18 0200 AC PO Niacin 500 MG DAILY 04/18 1000 AC 04/19 PO 1215 Oxycodone/ 1 TAB Q6P PRN 04/18 0145 AC Acetaminophen PO Potassium Chloride 40 MEQ Q13H 04/18 0145 DC 04/18 Sodium Chloride 1,000 ML IV 04/18 1444 0629 Last 24 Hrs of Lab/Chong Results Last 24 Hrs of Labs/Mics: Laboratory Tests 04/19/17 0805: Anion Gap 7, Estimated GFR > 60, BUN/Creatinine Ratio 17.8, CBC w Diff NO MAN DIFF REQ, RBC 4.66 L, MCV 81.7, MCH 27.1, RDW 14.6 H, MPV 9.7, Gran % 67.7, Lymphocytes % 23.2, Monocytes % 6.9, Eosinophils % 2.0, Basophils % 0.2, Absolute Granulocytes 4.9, Absolute Lymphocytes 1.7, Absolute Monocytes 0.5, Absolute Eosinophils 0.1, Absolute Basophils 0, PUBS MCHC 33.1 Assessment/Plan Assessment: 46-year-old gentleman current smoker with a history of hypertension, hyperlipidemia, dyslipidemia, status post dual-chamber pacemaker secondary to symptomatic bradycardia, Multiple strokes involving right MCA and RICK, residual left lower extremity weakness, after one of his strokes in October 2016 extensive workup was done at [place] for vasculitis with no remarkable findings, recently admitted to [facility] in 04/03/17 for CVA and was discharged on aggregnox, BIBA by ambulance for worsening LUE weakness and slurring of speech. In the past he has been extensively worked up for CVA. MRI done last year showed multiple acute to subacute infarcts involving the right frontal and parietal lobes inclusive of the right perirolandic region, some of which appear watershed , and some of which are located within the right RICK and MCA territories. EEG done at that time showed structural abnormality of the left frontal and right temporal head regions, CT head and neck showed extensive intracranial atherosclerosis with marked irregularity and multifocal narrowing. Extensive workup has been done in [place] last year revealed no evidence of vasculitis as per cerebral angiogram, hypercoagulable workup negative, the also did an LP there which did not reveal any evidence of an intracranial infection, most likely cause seems to be intracranial atherosclerosis insetting of bilateral carotid artery stenosis 50-79% , he also continues to smoke and not following appropriate likely dietry restrictions insetting of being overweight and not being able to exercise secondary to stoke related residual weakness. Upon this admission he presents with slurred speech, left-sided facial droop, left upper extremity weakness, with likely new onset infarction within the right hemisphere in the setting of multiple previous large territory infarctions. Neurology on board, patient's to get MRI brain with MRA brain and neck, TTE, As per neurology recommendation Aggrenox switched to aspirin and Plavix. We will continue cardiac monitoring for any arrhythmias Frequent Neurochecks PT and OT consult placed will follow-up recommendation Smoking cessation, History of hyperlipidemia: We'll continue home dose of niacin 500 mg daily, fenofibrate. History of hypertension: Lisinopril started low-dose, but continue to ensure permissive hypertension Diet: Heart healthy/chopped DVT prophylaxis with Lovenox Full code Problem List: 1. Acute CVA (cerebrovascular accident) Pain Ratin Pain Location: None Pain Goal: Remain pain free Pain Plan: pain pathway Tomorrow's Labs & Rationales: None
[2017-04-19 09:15] VITALS: BP 158/88
--- NOTE | 2017-04-19 13:53 | PN- Att Addend ---
Attending MD Review Statement Attending Statement Attending MD Statement: examined this patient, discuss w/resident/PA/PRODUCER DIRECTOR, agreed w/resident/PA/PRODUCER DIRECTOR, reviewed EMR data (avail), discussed w/nursing, discussed w/ case mgmt Attending Assessment/Plan: Laboratory Tests 04/19/17 0805: Anion Gap 7, Estimated GFR > 60, BUN/Creatinine Ratio 17.8, CBC w Diff NO MAN DIFF REQ, RBC 4.66 L, MCV 81.7, MCH 27.1, RDW 14.6 H, MPV 9.7, Gran % 67.7, Lymphocytes % 23.2, Monocytes % 6.9, Eosinophils % 2.0, Basophils % 0.2, Absolute Granulocytes 4.9, Absolute Lymphocytes 1.7, Absolute Monocytes 0.5, Absolute Eosinophils 0.1, Absolute Basophils 0, PUBS MCHC 33.1 Vital Signs Date Time Temp Pulse Resp B/P B/P Pulse O2 O2 Flow FiO2 Mean Ox Delivery Rate 04/19 1215 81 158/88 04/19 0915 98.5 81 20 158/88 94 Room Air 04/19 0100 70 152/92 04/18 2337 98.7 67 24 160/100 92 04/18 1733 66 160/100 04/18 1639 98.9 66 22 160/100 93 Room Air pt admitted with slurred speech and has previous history of multiple strokes with residual LLE weakness. Pt was last admitted in march 2017 for stroke and was changed at that time to aggrenox. pt also had workup at [place] for stroke and was negative. pt started back on asa and plavix this admission. F/u on neuro recommendations. Await ROSS and MRI brain results.
[2017-04-19 17:23] VITALS: BP 183/83
[2017-04-20 00:41] VITALS: BP 160/66; BP 166/82
--- NOTE | 2017-04-20 07:12 | PN- Housestaff ---
Subjective Follow-up For: CVA Subjective: Patient seen and examined this morning. He was sitting in bed in no acute distress, continues to have slurred speech, left-sided weakness, hemodynamically stable, vitals within normal limits. Offers new complaints. Review of Systems Constitutional: Reports: see HPI. Objective Last 24 Hrs of Vital Signs/I&O Vital Signs Date Time Temp Pulse Resp B/P B/P Pulse O2 O2 Flow FiO2 Mean Ox Delivery Rate 04/20 0830 98.6 67 20 162/70 94 04/20 0041 98.6 84 18 160/66 94 Room Air 04/20 0000 Room Air 04/19 1723 98.7 83 16 183/83 92 Room Air 04/19 1215 81 158/88 Intake & Output 04/20 1600 04/20 0800 04/20 0000 Intake Total 120 60 Output Total 600 Balance -480 60 Intake, Oral 120 60 Output, Urine 600 Physical Exam General Appearance: Alert, Oriented X3, Cooperative, No Acute Distress Cardiovascular: Regular Rate, Normal S1, Normal S2, No Murmurs Lungs: Clear to Auscultation, Normal Air Movement Abdomen: Normal Bowel Sounds, No Tenderness, obese Neurological: slurred speech, left facial droop, pupils reactive to light bilaterally, done in uvula sent to, left upper extremity power 3-5, left lower extremity power 4 over 5, Extremities: No Clubbing, No Cyanosis Current Medications: Current Medications Sig/Fermin Start time Last Medication Dose Route Stop Time Status Admin Acetaminophen 650 MG Q6P PRN 04/18 0145 AC PO Aspirin 81 MG DAILY 04/18 1429 AC 04/20 PO 1058 Atorvastatin Calcium 80 MG 1700 04/18 1700 AC 04/19 PO 1823 Benzonatate 100 MG TID PRN 04/19 1500 AC 04/20 PO 0111 Clopidogrel Bisulfate 75 MG DAILY 04/18 1429 AC 04/20 PO 1058 Enoxaparin Sodium 40 MG DAILY 04/18 1000 AC 04/19 SC 1215 Fenofibrate 48 MG DAILY 04/18 1000 AC 04/20 PO 1058 Guaifenesin 10 ML .STK-MED ONE 04/20 0215 DC PO 04/20 0216 Guaifenesin 10 ML .STK-MED ONE 04/19 2114 DC PO 04/19 2115 Guaifenesin/ 10 ML Q6P PRN 06/12 0100 AC 04/20 Dextromethorphan PO 1058 Lisinopril 5 MG DAILY 04/18 1438 AC 04/20 PO 1058 Meclizine HCl 12.5 MG TID PRN 04/18 0200 AC PO Niacin 500 MG DAILY 04/18 1000 AC 04/20 PO 1058 Oxycodone/ 1 TAB Q6P PRN 04/18 0145 AC Acetaminophen PO Assessment/Plan Assessment: 46-year-old gentleman current smoker with a history of hypertension, hyperlipidemia, dyslipidemia, status post dual-chamber pacemaker secondary to symptomatic bradycardia, Multiple strokes involving right MCA and RICK, residual left lower extremity weakness, after one of his strokes in October 2016 extensive workup was done at [place] for vasculitis with no remarkable findings, recently admitted to [facility] in 04/03/17 for CVA and was discharged on aggregnox, BIBA by ambulance for worsening LUE weakness and slurring of speech. In the past he has been extensively worked up for CVA. MRI done last year showed multiple acute to subacute infarcts involving the right frontal and parietal lobes inclusive of the right perirolandic region, some of which appear watershed , and some of which are located within the right RICK and MCA territories. EEG done at that time showed structural abnormality of the left frontal and right temporal head regions, CT head and neck showed extensive intracranial atherosclerosis with marked irregularity and multifocal narrowing. Extensive workup has been done in [place] last year revealed no evidence of vasculitis as per cerebral angiogram, hypercoagulable workup negative, the also did an LP there which did not reveal any evidence of an intracranial infection, most likely cause seems to be intracranial atherosclerosis insetting of bilateral carotid artery stenosis 50-79% , he also continues to smoke and not following appropriate likely dietry restrictions insetting of being overweight and not being able to exercise secondary to stoke related residual weakness. Upon this admission he presents with slurred speech, left-sided facial droop, left upper extremity weakness, with likely new onset infarction within the right hemisphere in the setting of multiple previous large territory infarctions. Neurology on board, patient's to get MRI brain with MRA brain and neck, TTE scheduled for tomorrow, patient will be kept nothing by mouth overnight, As per neurology recommendation Aggrenox switched to aspirin and Plavix. We will continue cardiac monitoring for any arrhythmias Frequent Neurochecks PT and OT consult placed will follow-up recommendation Smoking cessation, History of hyperlipidemia: We'll continue home dose of niacin 500 mg daily, fenofibrate. History of hypertension: Lisinopril started low-dose, but continue to ensure permissive hypertension Diet: Heart healthy/chopped DVT prophylaxis with Lovenox Full code Problem List: 1. CVA (cerebral vascular accident) Pain Ratin Pain Location: None Pain Goal: Remain pain free Pain Plan: Mild pain pathway Tomorrow's Labs & Rationales: none
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
[2017-04-20 08:30] VITALS: BP 162/70
--- NOTE | 2017-04-20 14:23 | Discharge Summary ---
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 In the past he has been extensively worked up for CVA. MRI done last year showed multiple acute to subacute infarcts involving the right frontal and parietal lobes inclusive of the right perirolandic region, some of which appear watershed , and some of which are located within the right RICK and MCA territories. EEG done at that time showed structural abnormality of the left frontal and right temporal head regions, CT head and neck showed extensive intracranial atherosclerosis with marked irregularity and multifocal narrowing. Extensive workup has been done in [place] last year revealed no evidence of vasculitis as per cerebral angiogram, hypercoagulable workup negative, the also did an LP there which did not reveal any evidence of an intracranial infection, most likely cause seems to be intracranial atherosclerosis insetting of bilateral carotid artery stenosis 50-79% , he also continues to smoke and not following appropriate likely dietry restrictions insetting of being overweight and not being able to exercise secondary to stoke related residual weaknes Vitals on admission temperature max 100.2, pulse 86, blood pressure 160/81, respiratory rate 17 saturating more than 96 but on room air. Pertinent labs on admission: Normal except for potassium 3.1 EKG showed incomplete right bundle branch block with no significant STT changes. CT head showed:Redemonstrated are focal regions of encephalomalacia within the right frontal and right parietal lobes, corresponding to regions of chronic infarction Following problems were read as per patient was on telemetry floor: 1. Recurrent CVA(most likely due to medication noncompliance), less likely due to cryptogenic stroke: Patient was admitted to telemetry floor. Neuro checks were done every 2 hours. He was kept nothing by mouth had a formal swallowing evaluation done, and afterwards started on mechanical soft nectar thick diet. Patient was seen by neurology recommended to discontinue Aggrenox and start the patient again on aspirin and Plavix. As per recommendations patient had a ROSS done that showed no evidence of valvular vegetations/thrombus. Patient also had a MRI that showed a large area of restricted diffusion in the distribution of the right middle cerebral artery, consistent with a territorial infarct. Doppler carotid ultrasound was done but there was some discrepancy between the carotid and the previous results. Imaging done this time showed non-hemodynamically significant stenosis of bilateral internal carotid arteries corresponding to a 0-49% stenosis however carotid ultrasound done in September 2016 show stenosis of 50-79% bilaterally. CT neck was done that showed similar results (Mild (less than 50%) nonocclusive bilateral carotid bulb stenoses secondary to eccentric nonulcerative atherosclerotic plaque) Patient was continued on aspirin and Plavix. Unfortunately due to the extent of his disease there was a suspicion of high incidence of recurrent neurologic deficits. As per recommendations from physical therapy patient was discharged to the [facility]. 2. History of hyperlipidemia: Home dose of niacin 500 mg And fenofibrate were continued. 3. History of hypertension: Antihypertensives were held on admission o ensure permissive hypertension. Lisinopril low-dose was started afterwards. Diet: Heart healthy/chopped DVT prophylaxis with Lovenox Full code Allergies: Coded Allergies: NO KNOWN ALLERGIES (07/10/15) Significant Procedures: KACI MAK Age: 46 : Gender: M Exam Date: 04/21/2017 10:01 Exam Location: [address] [place] [address] Ht (in): 74 Wt (lb): 300 BSA: 2.72 BP: 164 / 90 Ordering Physician: KELSEA VALENCIA MD Referring Physician: KELSEA VALENCIA MD Technologist: Kaci Flor [facility] Room Number: 179-1 Indications: SOURCE OF EMBOLUS Rhythm: Sinus Technical Quality: Good Medications Ease of Transducer Insertion No Difficulty Complications Technical Difficulty None. FINDINGS Left Ventricle Left ventricle grossly normal. Right Ventricle Normal right ventricular size and function. Catheter/pacemaker wire in the right ventricular cavity. Right Atrium Normal right atrial size. Catheter/pacemaker wire in the right atrial cavity. Left Atrium Mild left atrial dilatation. LA Appendage Left atrial appendage not well visualized, grossly normal. No evidence of thrombus or spontaneous contrast. IA Septum Normal interatrial septum. No evidence of shunt flow by color Doppler or agitated saline ("bubble") study. Mitral Valve Structurally normal mitral valve. No evidence of vegetation on the mitral valve. Trace mitral regurgitation. Aortic Valve Structurally normal trileaflet aortic valve. No evidence of vegetation on the aortic valve. No aortic valve stenosis or regurgitation. Tricuspid Valve Structurally normal tricuspid valve. No evidence of tricuspid valve vegetation. Trace tricuspid regurgitation. Pulmonic Valve Pulmonic valve not well visualized, grossly normal. No evidence of pulmonic valve vegetation. Pericardium No pericardial effusion. Great Vessels Aortic root and proximal ascending aorta not well visualized, grossly normal. CONCLUSIONS Left ventricle grossly normal. Normal right ventricular size and function. Normal right atrial size. Pacemaker wire noted in right heart. Mild left atrial dilatation. Left atrial appendage not well visualized, grossly normal. No evidence of thrombus or spontaneous contrast. Normal interatrial septum. No evidence of shunt flow by color Doppler or agitated saline ("bubble") study. No evidence of valvular vegetations. Trace mitral regurgitation. Trace tricuspid regurgitation. Perry Dobbs M.D. (Electronically Signed) Final Date: 22 April 2017 11:03 MEASUREMENTS (Male / Female) Normal Values DICTATED BY: PERRY DOBBS MD DATE/TIME DICTATED:04/22/171102 BUSINESS SYSTEMS ADVISOR:KENNETH DATE/TIME TRANSCRIBED:04/22/171102 CONFIDENTIAL, DO NOT COPY WITHOUT APPROPRIATE AUTHORIZATION. <Electronically signed in Other Vendor System> SIGNED BY: PERRY DOBBS MD 04/22/17 1104 SERVICE DATE: 04/23/17- EXAM TYPE: US - [id number] DOPPLER ADDENDUM: 1. Imaging is limited due to inability of patient to comply fully with the patient's positioning instructions. 2. There is no significant diameter reduction of the bilateral common carotid arteries on grayscale and color Doppler imaging. 3. Comparison is as well made with the CTA dated 09/28/2016. Addendum Signed by: LUZ MARIA KIM MD 04/24/17 7019 EXAMINATION: DUPLEX BILATERAL CAROTID ULTRASOUND CLINICAL INFORMATION: CVA with weakness. COMPARISON: Prior carotid ultrasound examinations, most recently 03/31/2017. TECHNIQUE: Real-time ultrasound and Doppler techniques (integrating B-mode 2D vascular images, Doppler spectral analysis and color flow Doppler imaging) were utilized to interrogate the extracranial carotid and vertebral arteries bilaterally. FINDINGS: Right side: 1. There is mild hyperechoic plaque in the ECA/ICA region. 2. The common carotid artery velocity is 108 cm/s. 3. The proximal internal carotid artery velocities are 64 cm/s systolic and 14 cm/s diastolic. 4. The external carotid artery velocity is 116 cm/s. Left side: 1. There is mild hyperechoic plaque in the ECA/ICA region. 2. The common carotid artery velocity is 135 cm/s. 3. The proximal internal carotid artery velocities are 57 cm/s systolic and 21 cm/s diastolic. 4. The external carotid artery velocity is 108 cm/s. ADDITIONAL FINDINGS: 1. The vertebral arteries are not visualized. IMPRESSION: 1. RIGHT: Minimal, nonhemodynamically significant stenosis of the proximal right internal carotid artery corresponding to a 0-49% stenosis by velocity criteria. 2. LEFT: Minimal, nonhemodynamically significant stenosis of the proximal left internal carotid artery corresponding to a 0-49% stenosis by velocity criteria. 3. The bilateral vertebral arteries are nonvisualized. DICTATED BY: LUZ MARIA KIM MD DATE/TIME DICTATED:04/24/17711 BUSINESS SYSTEMS ADVISOR:KENNETH DATE/TIME TRANSCRIBED:04/24/17711 CONFIDENTIAL, DO NOT COPY WITHOUT APPROPRIATE AUTHORIZATION. <Electronically signed in Other Vendor System> SIGNED BY: LUZ MARIA KIM MD 04/24/17 0719 EXAM TYPE: MRI - MRA-HEAD; MRI-HEAD W/O JEY EXAMINATION: MR BRAIN WITHOUT CONTRAST MR ANGIOGRAPHY OF THE HEAD WITHOUT CONTRAST CLINICAL INFORMATION: New onset infarction within the right hemisphere. Fibromuscular dysplasia. Assess for CVA. COMPARISON: CT scan of the head 04/17/2017. TECHNIQUE: Multiplanar, multisequence imaging of the brain was obtained without intravenous administration of contrast. 3-D [id number] MR angiography was performed. Multiple 3-D reformatted images were processed on the technologist workstation. Imaging is severely degraded by patient motion artifact on multiple sequences. Due to poor patient cooperation axial FLAIR and gradient sequences were not obtained. FINDINGS: MRI BRAIN: There is a large area of restricted diffusion in the distribution of the right middle cerebral artery, consistent with a territorial infarct. This region has increased T2 signal. On the sagittal T1 images, there are linear areas of intrinsically increased T1 signal, which may be consistent with lamina microhemorrhages. There is mild mass effect on the body of the right lateral ventricle. There is no midline shift. There are areas of increased T2 signal in the periventricular and subcortical white matter elsewhere, consistent with chronic microvascular ischemic changes. There is a lacunar infarct in the left cerebellar hemisphere. The brainstem is unremarkable. No extra-axial fluid collections are seen. The craniovertebral junction, marrow signal, and midline structures are normal. The mastoid air cells and paranasal sinuses are well-aerated. MRA HEAD: There is thinner caliber of the visualized distal cervical internal carotid arteries extending intracranially. The caliber is decreased in the cavernous and supraclinoid regions. There is poor signal from the proximal right middle cerebral artery; distal to this no significant flow is demonstrated. The A1 and A2 segments of the right anterior cerebral artery are not visualized. The left internal carotid artery in the neck, as well as intracranially is patent. The middle and anterior cerebral arteries on the left demonstrate good flow with normal arborization of the middle cerebral artery branches. In the posterior circulation, the right vertebral artery is dominant. There is poor demonstration of the left vertebral artery. The right vertebral artery is slightly irregular caliber but is patent. The basilar artery and its terminal branches are patent. The proximal left superior cerebellar artery has a thin caliber. The basilar artery appears normal. The posterior cerebral arteries have normal caliber. IMPRESSION: 1. There is a large acute territorial infarct involving the right middle cerebral artery distribution. Linear T1 hyperintensities may be consistent with gyral microhemorrhage. No gross hemorrhagic changes are demonstrated on the available images. 2. There is a background of chronic microvascular ischemic disease. 3. MR angiography demonstrates thin caliber of the right internal carotid artery compared to the left. No definite flow is demonstrated in the right anterior cerebral artery. There is poor flow in the proximal M1 segment of the right middle cerebral artery with almost no flow distally. Relatively normal flow is demonstrated on the left. Recommend follow-up CTA of the head and neck for better assessment of the vascular structures. 4. As described above, images are severely degraded by patient motion artifact on multiple sequences. This critical result was discussed with Lorie Powers by telephone on 04/23/2017 at 12:25 PM and it was ascertained that the content and urgency of the report was understood at the time of direct communication. DICTATED BY: KYLER PAUL MD DATE/TIME DICTATED:04/23/171152 BUSINESS SYSTEMS ADVISOR:KENNETH DATE/TIME TRANSCRIBED:04/23/171152 CONFIDENTIAL, DO NOT COPY WITHOUT APPROPRIATE AUTHORIZATION. <Electronically signed in Other Vendor System> SIGNED BY: KYLER PAUL MD 04/23/17 1231 EXAM TYPE: MRI - MRA-HEAD; MRI-HEAD W/O JEY EXAMINATION: MR BRAIN WITHOUT CONTRAST MR ANGIOGRAPHY OF THE HEAD WITHOUT CONTRAST CLINICAL INFORMATION: New onset infarction within the right hemisphere. Fibromuscular dysplasia. Assess for CVA. COMPARISON: CT scan of the head 04/17/2017. TECHNIQUE: Multiplanar, multisequence imaging of the brain was obtained without intravenous administration of contrast. 3-D jinm-ya-xhjkjr MR angiography was performed. Multiple 3-D reformatted images were processed on the technologist workstation. Imaging is severely degraded by patient motion artifact on multiple sequences. Due to poor patient cooperation axial FLAIR and gradient sequences were not obtained. FINDINGS: MRI BRAIN: There is a large area of restricted diffusion in the distribution of the right middle cerebral artery, consistent with a territorial infarct. This region has increased T2 signal. On the sagittal T1 images, there are linear areas of intrinsically increased T1 signal, which may be consistent with lamina microhemorrhages. There is mild mass effect on the body of the right lateral ventricle. There is no midline shift. There are areas of increased T2 signal in the periventricular and subcortical white matter elsewhere, consistent with chronic microvascular ischemic changes. There is a lacunar infarct in the left cerebellar hemisphere. The brainstem is unremarkable. No extra-axial fluid collections are seen. The craniovertebral junction, marrow signal, and midline structures are normal. The mastoid air cells and paranasal sinuses are well-aerated. MRA HEAD: There is thinner caliber of the visualized distal cervical internal carotid arteries extending intracranially. The caliber is decreased in the cavernous and supraclinoid regions. There is poor signal from the proximal right middle cerebral artery; distal to this no significant flow is demonstrated. The A1 and A2 segments of the right anterior cerebral artery are not visualized. The left internal carotid artery in the neck, as well as intracranially is patent. The middle and anterior cerebral arteries on the left demonstrate good flow with normal arborization of the middle cerebral artery branches. In the posterior circulation, the right vertebral artery is dominant. There is poor demonstration of the left vertebral artery. The right vertebral artery is slightly irregular caliber but is patent. The basilar artery and its terminal branches are patent. The proximal left superior cerebellar artery has a thin caliber. The basilar artery appears normal. The posterior cerebral arteries have normal caliber. IMPRESSION: 1. There is a large acute territorial infarct involving the right middle cerebral artery distribution. Linear T1 hyperintensities may be consistent with gyral microhemorrhage. No gross hemorrhagic changes are demonstrated on the available images. 2. There is a background of chronic microvascular ischemic disease. 3. MR angiography demonstrates thin caliber of the right internal carotid artery compared to the left. No definite flow is demonstrated in the right anterior cerebral artery. There is poor flow in the proximal M1 segment of the right middle cerebral artery with almost no flow distally. Relatively normal flow is demonstrated on the left. Recommend follow-up CTA of the head and neck for better assessment of the vascular structures. 4. As described above, images are severely degraded by patient motion artifact on multiple sequences. This critical result was discussed with Lorie Powers by telephone on 04/23/2017 at 12:25 PM and it was ascertained that the content and urgency of the report was understood at the time of direct communication. DICTATED BY: KYLER PAUL MD DATE/TIME DICTATED:04/23/171152 BUSINESS SYSTEMS ADVISOR:KENNETH DATE/TIME TRANSCRIBED:04/23/171152 CONFIDENTIAL, DO NOT COPY WITHOUT APPROPRIATE AUTHORIZATION. <Electronically signed in Other Vendor System> SIGNED BY: KYLER PAUL MD 04/23/17 1231 EXAM TYPE: CAT - CT NECK ANGIOGRAM Addendum: This report with specific reference to possible moyamoya disease was discussed with Dr. Colvin by telephone at 04/25/2017 10:17 AM and it was ascertained that the content and urgency of the report was understood at the time of direct communication. Dr. Colvin and I discussed that moyamoya disease may be the etiology of the acute infarct identified on the comparison MRI of 04/23/2017. Addendum Signed by: DANII MATUTE MD 04/25/17 1014 EXAMINATION: CT ANGIOGRAM NECK CLINICAL INFORMATION: Bilateral carotid stenoses. Discordant carotid ultrasound assessment of the degree of carotid stenoses between the carotid ultrasound examinations of 04/23/2017 and 04/25/2017. COMPARISON: Carotid ultrasound 09/28/2016, 04/23/2017, CT angiography of the neck 09/28/2016, CT chest 09/25/2016, MR angiography head 04/23/2017, MRI brain 04/23/2017. TECHNIQUE: Test bolus sequences followed by administration of 100 mL of Omnipaque 300 intravenous contrast. Helical imaging was performed in the axial plane of the neck. The data was processed at the hybrid technologist workstation for generation of MIP sequences. Carotid stenoses are represented with reference to the NASCET criteria unless specifically stated otherwise. Intravenous contrast: Optiray 350 95 ml. DLP: 1015 mGy-cm FINDINGS: Right carotid bulb: Eccentric predominantly calcific atherosclerotic plaque is present in the right carotid bulb. No ulcerative plaque is present in this region. The minimum transaxial flow lumen dimensions at the point of maximum stenosis measure 3.4 mm x 3.2 mm (axial image 287/466). The distal right internal carotid artery at multiple points demonstrates a flow lumen diameter of generally 3.0 mm (national account representative image 336/466). On this basis and with utilization of the NASCET criteria, the right carotid bulb stenosis 80 characterized as mild (less than 50%). Left carotid bulb: Mild, eccentric nonulcerative prominently calcific atherosclerotic plaque is present in the right carotid bulb. The point of maximal transaxial stenosis (image 265/466 demonstrates a measured transaxial flow lumen of 3.2 mm x 3.7 mm. The distal right internal carotid artery demonstrates national account representative transaxial dimensions ranging between 3.0 mm and 3.2 mm. On this basis and with utilization of the NASCET criteria, the right carotid bulb stenosis 80 characterized as mild (less than 50%). The common carotid arteries distal to the carotid bulbs and straight normal caliber and contour without evidence of diffuse arteriopathy. Additional findings: Within the incidentally visualized mediastinum, prominent superior vena spinal fat or possible residual fatty thymic tissue is present and grossly unchanged compared with CT the chest from 09/25/2016. Scattered nonocclusive calcific atherosclerosis is noted in the transverse aorta. Conventional branching anatomy of the great vessels in relation to the transverse aorta is noted. Partial visualization is made of atrioventricular pacer leads within the left brachiocephalic vein and a left pectoral generator. Mild nonocclusive segmental noncalcific atherosclerosis is present in the common carotid arteries bilaterally. Within the incidentally visualized portions of the head, segmental contour irregularity of the cavernous portion of the right internal carotid artery is present with marked focal narrowing of the proximal portion of the cavernous right internal carotid artery. A minimum transaxial flow lumen diameter in this region measures approximately 1.5 mm (axial image 402/466). Moderate narrowing of the flow lumen of the remainder of the cavernous portion of the internal carotid artery on the right is noted. Moderate segmental narrowing in scattered calcific atherosclerosis of the cavernous portion of the left internal carotid artery. Furthermore, the M1 segments of the left and right middle cerebral arteries are markedly diminutive particularly on the right with findings grossly similar to the examination of 09/28/2016. A narrow caliber A1 segment of the left anterior cerebral artery is noted. A 1 segment of the right anterior cerebral arteries not visualized. The right vertebral artery is dominant. Focal mural calcifications are noted in the proximal intradural segment of the left vertebral artery. Intraluminal opacification of the intradural segment of the left vertebral artery proximal to the left [employer] origin is not present. Distal to the [employer] origins, the left and right vertebral arteries are diminutive in caliber and the basilar artery is diffusely diminutive measuring approximately 2 mm diameter. Diminutive posterior cerebral arteries are present. Posterior communicating arteries are not identified. The above findings are commensurate with findings noted on the MR angiography study of the brain from 04/23/2017. Partial visualization is made of cytotoxic edema within the right cerebral hemisphere consistent with the previously reported acute infarct. Within the fortuitously visualized portions of the neck, no gross lymphadenopathy is identified. The larynx and pharynx are grossly normal in appearance. No abnormalities of the major salivary glands are identified. Left and right superficial temporal arteries are normal in appearance. IMPRESSION: 1. Mild (less than 50%) nonocclusive bilateral carotid bulb stenoses secondary to eccentric nonulcerative atherosclerotic plaque. 2. Findings suspicious for moyamoya disease. Specifically, within the incidentally visualized intracranial vasculature, segmental narrowing and contour irregularity of the intracranial internal carotid arteries, basilar artery and proximal anterior, middle and posterior cerebral artery segments is present in a configuration suspicious for moyamoya syndrome/arteriopathy. Findings include marked focal stenosis of the proximal cavernous portion of the right internal carotid artery out of proportion to the degree of mild segmental calcific atherosclerosis also noted within the cavernous portions of the internal carotid arteries. 3. Partially visualized right hemispheric acute infarct as visualized to better advantage on the comparison MRI of 04/23/2017. 4. No evidence of fibromuscular dysplasia. Normal appearance of the cervical segments of the internal carotid arteries without evidence of arteriopathy. DICTATED BY: DANII MATUTE MD DATE/TIME DICTATED:04/25/17903 BUSINESS SYSTEMS ADVISOR:KENNETH DATE/TIME TRANSCRIBED:04/25/17903 CONFIDENTIAL, DO NOT COPY WITHOUT APPROPRIATE AUTHORIZATION. <Electronically signed in Other Vendor System> SIGNED BY: DANII MATUTE MD 04/25/17 1021 Disposition Summary Disposition Principal Diagnosis: 1. Recurrent CVA(most likely due to medication noncompliance), less likely due to cryptogenic stroke Additional Diagnosis: History of hypertension and lipidemia Discharge Disposition: SNF Discharge Instructions General Discharge Information Code Status: Full Code Patient's Diet: Heart healthy diet(mechanical soft nectar thick) Patient's Activity: As tolerated Follow-Up Instructions/Appts: Please follow with the PCP within 1-2 weeks of discharge. Please follow-up with your neurologist within 1-2 weeks after discharge Please remain compliant with her medications Medications at Discharge Discharge Medications: Stop taking the following medications: Lisinopril (Lisinopril) 40 MG TABLET ORAL DAILY Qty = 90 Hydrochlorothiazide (Hydrochlorothiazide) 25 MG TABLET ORAL DAILY Qty = 90 Dipyridamole W/ Aspirin (Aggrenox 25 MG-200 MG Capsule) 25 MG-200 MG CPMP.12HR ORAL TWICE DAILY Qty = 60 Continue taking these medications: Niacin (Niacin) 500 MG CAPSULE.ER 1 Capsule ORAL DAILY Days = 30 Comments: Last Taken: 04/01/17 Time: 830 AM Fenofibrate (Fenofibrate) 54 MG TABLET 1 Tablet ORAL DAILY Qty = 30 Comments: Last Taken: 04/01/17 Time: 830 AM Meclizine HCl (Meclizine HCl) 12.5 MG TABLET 1 Tablet ORAL THREE TIMES DAILY as needed for VERTIGO Qty = 30 Comments: NOT GIVEN Atorvastatin Calcium (Atorvastatin Calcium) 80 MG TABLET 1 Tablet ORAL DAILY Qty = 30 Comments: Last Taken: 03/31/17 Time: 530 PM Start taking the following new medications: Lisinopril (Lisinopril) 5 MG TABLET 1 Tablet ORAL DAILY Qty = 60 No Refills Aspirin (Ecotrin*) 81 MG TABLET.DR 1 Tablet ORAL DAILY Qty = 30 No Refills Clopidogrel Bisulfate (Plavix) 75 MG TABLET 1 Tablet ORAL DAILY Qty = 30 No Refills Copies To: GABRIEL SORENSON
--- NOTE | 2017-04-20 14:45 | PN- Att Addend ---
Attending MD Review Statement Attending Statement Attending MD Statement: examined this patient, discuss w/resident/PA/INSPECTOR PLATING, agreed w/resident/PA/INSPECTOR PLATING, reviewed EMR data (avail), discussed w/nursing, discussed w/ case mgmt Attending Assessment/Plan: Vital Signs Date Time Temp Pulse Resp B/P B/P Pulse O2 O2 Flow FiO2 Mean Ox Delivery Rate 04/20 0830 98.6 67 20 162/70 94 04/20 0041 98.6 84 18 160/66 94 Room Air 04/20 0000 Room Air 04/19 1723 98.7 83 16 183/83 92 Room Air Stroke- Planned for ROSS and MRI brain tomorrow. d/w pt the care plan. Flat affect- pt denies any non compliance with meds but pts father does not feel patient is compliant. May have underlying depression. Will get psychiatry consult.
[2017-04-20 16:29] VITALS: BP 150/80
[2017-04-21] VITALS: BP 142/78
--- NOTE | 2017-04-21 07:19 | PN- Housestaff ---
Subjective Follow-up For: Left-sided CVA Complaints: no change Tele-Events Since Last Visit: Sinus bradycardia, sinus rhythm, heart rate ranging from 59-81. Subjective: I followed up and examined the patient today. He is resting comfortably in bed, is currently nothing by mouth for a ROSS later today and a swallow evaluation. He does not have any complaints, is still not able to move his left upper extremity and left lower extremity, although he mentions that he can minimally move his left lower extremity. His systolic blood pressure has been running high, mostly in 150-160s, rest of his vitals are stable. No overnight issues. Review of Systems Constitutional: Reports: no symptoms. Objective Last 24 Hrs of Vital Signs/I&O Vital Signs Date Time Temp Pulse Resp B/P B/P Pulse O2 O2 Flow FiO2 Mean Ox Delivery Rate 04/21 0813 98.6 70 20 164/90 92 Room Air 04/21 0000 Room Air 04/21 0000 98.5 60 18 142/78 96 04/20 1709 Room Air 04/20 1629 98.0 70 20 150/80 95 Room Air Intake & Output 04/21 1600 04/21 0800 04/21 0000 Intake Total 60 350 Output Total 350 400 Balance -290 -50 Intake, Oral 60 350 Number 0 Bowel Movements Output, Urine 350 400 Patient 136.078 kg Weight Physical Exam General Appearance: Alert, Oriented X3, Cooperative, No Acute Distress Other Physical Findings: Cardiovascular: Regular Rate, Normal S1, Normal S2, No Murmurs Lungs: Clear to Auscultation, Normal Air Movement Abdomen: Normal Bowel Sounds, No Tenderness, obese Neurological: slurred speech, left facial droop, pupils reactive to light bilaterally, left upper extremity power 2-3/5, left lower extremity power 3/5 Extremities: No Clubbing, No Cyanosis Current Medications: Current Medications Sig/Fermin Start time Last Medication Dose Route Stop Time Status Admin Acetaminophen 650 MG Q6P PRN 04/18 0145 AC PO Aspirin 81 MG DAILY 04/18 1429 AC 04/21 PO 1249 Atorvastatin Calcium 80 MG 1700 04/18 1700 AC 04/21 PO 1737 Benzonatate 100 MG TID PRN 04/19 1500 AC 04/21 PO 1737 Clopidogrel Bisulfate 75 MG DAILY 04/18 1429 AC 04/21 PO 1248 Enoxaparin Sodium 40 MG DAILY 04/18 1000 AC 04/21 SC 1249 Fenofibrate 48 MG DAILY 04/18 1000 AC 04/21 PO 1248 Fentanyl Citrate 100 MCG .STK-MED ONE 04/21 0950 DC IM 04/21 0951 Guaifenesin 10 ML .STK-MED ONE 04/21 0319 DC PO 04/21 0320 Guaifenesin/ 10 ML Q6P PRN 04/19 0100 AC 04/21 Dextromethorphan PO 1737 Ketamine HCl 50 MG .STK-MED ONE 04/21 0949 DC IM 04/21 0950 Lidocaine 0 .STK-MED ONE 04/21 0832 DC TOP Lisinopril 5 MG DAILY 04/18 1438 AC 04/21 PO 1248 Meclizine HCl 12.5 MG TID PRN 04/18 0200 AC PO Midazolam HCl 5 MG .STK-MED ONE 04/21 0950 DC IM 04/21 0951 Niacin 500 MG DAILY 04/18 1000 AC 04/21 PO 1249 Oxycodone/ 1 TAB Q6P PRN 04/18 0145 AC Acetaminophen PO Assessment/Plan Assessment: 46-year-old gentleman current smoker with a history of hypertension, hyperlipidemia, dyslipidemia, status post dual-chamber pacemaker secondary to symptomatic bradycardia, Multiple strokes involving right MCA and RICK, residual left lower extremity weakness, after one of his strokes in October 2016 extensive workup was done at [place] for vasculitis with no remarkable findings, recently admitted to [facility] in 04/03/17 for CVA and was discharged on aggregnox, BIBA by ambulance for worsening LUE weakness and slurring of speech. Patient is currently being managed in the telemetry floor for the following issues: #Cardiovascular accident (CVA) Patient has history of recurrent cardiovascular accident, in the setting of hypertension, smoking, noncompliance to medication, hyperlipidemia. Patient had a CAT scan of the head that did not reveal any bleeding. The patient's neurological condition has remained pretty much the same, neurology on board, following their recommendations. MRI had been ordered yesterday, but could not be done yesterday or today because the patient has pacemaker and requires a band sewer as well as a person from [employer] to be present and clear him for the scan. -Awaiting MRI tomorrow -Continue aspirin, Plavix -Continue statin, fenofibrate, niacin for lipids -Continue lisinopril for HTN, but continue to ensure permissive hypertension -Follow up ROSS that was doen today -Follow up neurology recommendations -Follow up PT and OT recommendations #Discharge disposition: Patient lives at [facility],, and there is a concern about his living conditions, this requiring reevaluation with keycase assembler tomorrow. Diet: Heart healthy/mechanical soft ground, nectar thick per speech therapist today DVT prophylaxis with Lovenox Full code Problem List: 1. CVA (cerebral vascular accident) Pain Ratin Pain Location: - Pain Goal: Pain 4 or less Pain Plan: prn Tomorrow's Labs & Rationales: -
[2017-04-21 08:13] VITALS: BP 164/90
--- NOTE | 2017-04-21 09:45 | NUR ---
PHYSICAL THERAPY CANCELL FOR TODAY, PT OFF FLOOR FOR PROCEDURE
--- NOTE | 2017-04-21 11:29 | NUR ---
PHYSICAL THERAPY: ATTEMPTED TO SEE Pt AGAIN THIS A.M., Pt REMAINS OFF THE FLOOR. WILL F/U ABLE.
--- NOTE | 2017-04-21 15:00 | PN- Att Addend ---
Attending MD Review Statement Attending Statement Attending MD Statement: examined this patient, discuss w/resident/PA/INFORMATION ASSURANCE ENGINEER, agreed w/resident/PA/INFORMATION ASSURANCE ENGINEER, reviewed EMR data (avail), discussed w/nursing, discussed w/ case mgmt Attending Assessment/Plan: Vital Signs Date Time Temp Pulse Resp B/P B/P Pulse O2 O2 Flow FiO2 Mean Ox Delivery Rate 04/21 1248 70 164/90 04/21 0813 98.6 70 20 164/90 92 Room Air 04/21 0000 Room Air 04/21 0000 98.5 60 18 142/78 96 04/20 1709 Room Air 04/20 1629 98.0 70 20 150/80 95 Room Air pt seen and examined at bedside Stroke- went for ROSS and MRI brain today on 04/21, will f/u on results. Dysphagia- secondary to stroke. reevaluated by speech today. will f/u on their recommendations. HLD- cont on high dose statins. Disposition- Pt lives at [facility], will d/w case worker what will be the best option for patient.
[2017-04-21 16:14] VITALS: BP 130/70
[2017-04-21 23:58] VITALS: BP 134/70
--- NOTE | 2017-04-22 07:25 | PN- Housestaff ---
See Addendum Subjective Follow-up For: Left-sided CVA Complaints: no complaints Tele-Events Since Last Visit: Normal sinus rhythm 64-75 heart rate Subjective: Patient seen and examined this morning. He was lying comfortably in bed in acute distress. Continue to have slurred speech, weakness in the left upper extremity, he had a ROSS done yesterday, no evidence of any intracardiac thrombus , remains hemodynamically stable, PT has D the patient and discharge to [facility] Review of Systems Constitutional: Reports: see HPI. Objective Last 24 Hrs of Vital Signs/I&O Vital Signs Date Time Temp Pulse Resp B/P B/P Pulse O2 O2 Flow FiO2 Mean Ox Delivery Rate 04/22 1127 130/80 04/22 0800 98.1 76 20 130/80 94 Room Air 04/22 0000 Room Air 04/21 2358 97.9 71 20 134/70 93 Room Air 04/21 1614 98.0 91 20 130/70 93 04/21 1600 Room Air 04/21 1248 70 164/90 Intake & Output 04/22 1600 04/22 0800 04/22 0000 Intake Total 120 200 Output Total 325 Balance 120 -125 Intake, Oral 120 200 Number 0 Bowel Movements Output, Urine 325 Physical Exam General Appearance: Alert, Oriented X3, Cooperative, No Acute Distress Cardiovascular: Regular Rate, Normal S1, Normal S2, No Murmurs Lungs: Clear to Auscultation, Normal Air Movement Abdomen: Normal Bowel Sounds, Soft, No Tenderness Neurological: slurred speech, left facial droop, pupils reactive to light bilaterally, left upper extremity power 2-3/5, left lower extremity power 3/5 Extremities: No Clubbing, No Cyanosis, No Edema Current Medications: Current Medications Sig/Fermin Start time Last Medication Dose Route Stop Time Status Admin Acetaminophen 650 MG Q6P PRN 04/18 0145 AC PO Aspirin 81 MG DAILY 04/18 1429 AC 04/22 PO 1127 Atorvastatin Calcium 80 MG 1700 04/18 1700 AC 04/21 PO 1737 Benzonatate 100 MG TID PRN 04/19 1500 AC 04/21 PO 1737 Clopidogrel Bisulfate 75 MG DAILY 04/18 1429 AC 04/22 PO 1127 Enoxaparin Sodium 40 MG DAILY 04/18 1000 AC 04/22 SC 1127 Fenofibrate 48 MG DAILY 04/18 1000 AC 04/22 PO 1127 Guaifenesin/ 10 ML Q6P PRN 04/19 0100 AC 04/21 Dextromethorphan PO 1737 Lisinopril 5 MG DAILY 04/18 1438 AC 04/22 PO 1127 Meclizine HCl 12.5 MG TID PRN 04/18 0200 AC PO Niacin 500 MG DAILY 04/18 1000 AC 04/22 PO 1127 Oxycodone/ 1 TAB Q6P PRN 04/18 0145 AC Acetaminophen PO Assessment/Plan Assessment: 46-year-old gentleman current smoker with a history of hypertension, hyperlipidemia, dyslipidemia, status post dual-chamber pacemaker secondary to symptomatic bradycardia, Multiple strokes involving right MCA and RICK, residual left lower extremity weakness, after one of his strokes in October 2016 extensive workup was done at [place] for vasculitis with no remarkable findings, recently admitted to [facility] in 04/03/17 for CVA and was discharged on aggregnox, BIBA by ambulance for worsening LUE weakness and slurring of speech. In the past he has been extensively worked up for CVA. MRI done last year showed multiple acute to subacute infarcts involving the right frontal and parietal lobes inclusive of the right perirolandic region, some of which appear watershed , and some of which are located within the right RICK and MCA territories. EEG done at that time showed structural abnormality of the left frontal and right temporal head regions, CT head and neck showed extensive intracranial atherosclerosis with marked irregularity and multifocal narrowing. Extensive workup has been done in [place] last year revealed no evidence of vasculitis as per cerebral angiogram, hypercoagulable workup negative, the also did an LP there which did not reveal any evidence of an intracranial infection, most likely cause seems to be intracranial atherosclerosis insetting of bilateral carotid artery stenosis 50-79% , he also continues to smoke and not following appropriate likely dietry restrictions insetting of being overweight and not being able to exercise secondary to stoke related residual weakness. Upon this admission he presents with slurred speech, left-sided facial droop, left upper extremity weakness, with likely new onset infarction within the right hemisphere in the setting of multiple previous large territory infarctions. Neurology on board, MRI today, ROSS did not show any evidence of intracardial thrombus * As per neurology recommendation Aggrenox switched to aspirin and Plavix. * We will continue cardiac monitoring for any arrhythmias * Frequent Neurochecks * PT is recommended discharge to short-term rehabilitation * Smoking cessation, History of hyperlipidemia: We'll continue home dose of niacin 500 mg daily, fenofibrate. History of hypertension: Lisinopril started low-dose, but continue to ensure permissive hypertension #Discharge disposition: Patient lives at [facility],, and there is a concern about his living conditions, this requiring reevaluation with dependency case manager tomorrow. Diet: Heart healthy/mechanical soft ground, nectar thick DVT prophylaxis with Lovenox Full code Problem List: 1. CVA (cerebral vascular accident) Pain Ratin Pain Location: none Pain Goal: Remain pain free Pain Plan: [facility] Tomorrow's Labs & Rationales: cbc none
[2017-04-22 08:00] VITALS: BP 130/80
--- NOTE | 2017-04-22 11:04 | ECHOCARDIOGRAM REPORT ---
MARIONKACI MCFADDEN Age: 46 : Gender: M Exam Date: 04/21/2017 10:01 Exam Location: 1 [address] Ht (in): 74 Wt (lb): 300 BSA: 2.72 BP: 164 / 90 Ordering Physician: KELSEA VALENCIA MD Referring Physician: KELSEA VALENCIA MD Technologist: Kaci Flor [facility] Room Number: 179-1 Indications: SOURCE OF EMBOLUS Rhythm: Sinus Technical Quality: Good Medications Ease of Transducer Insertion No Difficulty Complications Technical Difficulty None. FINDINGS Left Ventricle Left ventricle grossly normal. Right Ventricle Normal right ventricular size and function. Catheter/pacemaker wire in the right ventricular cavity. Right Atrium Normal right atrial size. Catheter/pacemaker wire in the right atrial cavity. Left Atrium Mild left atrial dilatation. LA Appendage Left atrial appendage not well visualized, grossly normal. No evidence of thrombus or spontaneous contrast. IA Septum Normal interatrial septum. No evidence of shunt flow by color Doppler or agitated saline ("bubble") study. Mitral Valve Structurally normal mitral valve. No evidence of vegetation on the mitral valve. Trace mitral regurgitation. Aortic Valve Structurally normal trileaflet aortic valve. No evidence of vegetation on the aortic valve. No aortic valve stenosis or regurgitation. Tricuspid Valve Structurally normal tricuspid valve. No evidence of tricuspid valve vegetation. Trace tricuspid regurgitation. Pulmonic Valve Pulmonic valve not well visualized, grossly normal. No evidence of pulmonic valve vegetation. Pericardium No pericardial effusion. Great Vessels Aortic root and proximal ascending aorta not well visualized, grossly normal. CONCLUSIONS Left ventricle grossly normal. Normal right ventricular size and function. Normal right atrial size. Pacemaker wire noted in right heart. Mild left atrial dilatation. Left atrial appendage not well visualized, grossly normal. No evidence of thrombus or spontaneous contrast. Normal interatrial septum. No evidence of shunt flow by color Doppler or agitated saline ("bubble") study. No evidence of valvular vegetations. Trace mitral regurgitation. Trace tricuspid regurgitation. Garfield Neil M.D. (Electronically Signed) Final Date: 22 April 2017 11:03 MEASUREMENTS (Male / Female) Normal Values
--- NOTE | 2017-04-22 14:54 | NUR ---
SPEECH THERAPY: ATTEMPTED TO SEE PT FOR DYSPHAGIA TX. PT SLEEPING AT BEDSIDE; ROUSABLE TO VERBAL STIMULI BUT DEFERRING TRIALS OF PO INTAKE STATING HE WOULD RATHER SLEEP. PER RN REPORT, PT TOLERATING CURRENT DIET OF MECH SOFT/GROUND AND NECTAR THICK LIQUIDS W/ NO COUGHING/DIFFICULTIES. REC PT CONTINUE W/ CURRENT DIET AND ST CONTINUE TO FOLLOW FOR DIET TOLERANCE. D/W RN.
[2017-04-22 16:03] VITALS: BP 122/74
[2017-04-23 00:18] VITALS: BP 126/70
--- NOTE | 2017-04-23 07:23 | PN- Housestaff ---
See Addendum Subjective Follow-up For: CVA Tele-Events Since Last Visit: Normal sinus rhythm, heart rate between 86-98 Subjective: Patient seen and examined this morning. He was lying in bed in no acute distress, continued to have left-sided facial droop and left-sided upper extremity weakness, hemodynamically stable, the right is within normal limits, no other complaints. Review of Systems Constitutional: Denies: chills, fever. Cardiovascular: Denies: chest pain, palpitations. Respiratory: Denies: cough, short of breath, sputum production. Gastrointestinal: Denies: abdominal pain, constipation, diarrhea, nausea, vomiting. Objective Last 24 Hrs of Vital Signs/I&O Vital Signs Date Time Temp Pulse Resp B/P B/P Pulse O2 O2 Flow FiO2 Mean Ox Delivery Rate 04/23 1223 90 126/70 04/23 0018 97.9 90 20 126/70 95 Room Air 04/22 1603 98.3 93 20 122/74 95 Room Air Intake & Output 04/23 1600 04/23 0800 04/23 0000 Intake Total 0 360 Output Total 150 350 Balance -150 10 Intake, Oral 0 360 Number 1 Bowel Movements Output, Urine 150 350 Physical Exam General Appearance: Alert, Oriented X3, Cooperative Cardiovascular: Regular Rate, Normal S1, Normal S2, No Murmurs Lungs: Clear to Auscultation, Normal Air Movement Abdomen: Normal Bowel Sounds, Soft, No Tenderness Neurological: slurred speech, left facial droop, pupils reactive to light bilaterally, left upper extremity power 2-3/5, left lower extremity power 3/5 Extremities: No Clubbing, No Cyanosis, No Edema Current Medications: Current Medications Sig/Fermin Start time Last Medication Dose Route Stop Time Status Admin Acetaminophen 650 MG Q6P PRN 04/18 0145 AC PO Aspirin 81 MG DAILY 04/18 1429 AC 04/23 PO 1223 Atorvastatin Calcium 80 MG 1700 04/18 1700 AC 04/22 PO 1705 Benzonatate 100 MG TID PRN 04/19 1500 AC 04/23 PO 1223 Clopidogrel Bisulfate 75 MG DAILY 04/18 1429 AC 04/23 PO 1223 Enoxaparin Sodium 40 MG DAILY 04/18 1000 AC 04/23 SC 1224 Fenofibrate 48 MG DAILY 04/18 1000 AC 04/23 PO 1223 Guaifenesin/ 10 ML Q6P PRN 04/19 0100 DC 04/21 Dextromethorphan PO 1737 Lisinopril 5 MG DAILY 04/18 1438 AC 04/23 PO 1223 Meclizine HCl 12.5 MG TID PRN 04/18 0200 AC PO Niacin 500 MG DAILY 04/18 1000 AC 04/23 PO 1223 Oxycodone/ 1 TAB Q6P PRN 04/18 0145 AC Acetaminophen PO Assessment/Plan Assessment: 46-year-old gentleman current smoker with a history of hypertension, hyperlipidemia, dyslipidemia, status post dual-chamber pacemaker secondary to symptomatic bradycardia, Multiple strokes involving right MCA and RICK, residual left lower extremity weakness, after one of his strokes in October 2016 extensive workup was done at [place] for vasculitis with no remarkable findings, recently admitted to [facility] in 04/03/17 for CVA and was discharged on aggregnox, BIBA by ambulance for worsening LUE weakness and slurring of speech. In the past he has been extensively worked up for CVA. MRI done last year showed multiple acute to subacute infarcts involving the right frontal and parietal lobes inclusive of the right perirolandic region, some of which appear watershed , and some of which are located within the right RICK and MCA territories. EEG done at that time showed structural abnormality of the left frontal and right temporal head regions, CT head and neck showed extensive intracranial atherosclerosis with marked irregularity and multifocal narrowing. Extensive workup has been done in [place] last year revealed no evidence of vasculitis as per cerebral angiogram, hypercoagulable workup negative, the also did an LP there which did not reveal any evidence of an intracranial infection, most likely cause seems to be intracranial atherosclerosis insetting of bilateral carotid artery stenosis 50-79% , he also continues to smoke and not following appropriate likely dietry restrictions insetting of being overweight and not being able to exercise secondary to stoke related residual weakness. Upon this admission he presents with slurred speech, left-sided facial droop, left upper extremity weakness, with likely new onset infarction within the right hemisphere in the setting of multiple previous large territory infarctions. Neurology on board, MRI showed evidence of large acute territorial infarct involving the right middle cerebral artery, ROSS did not show any evidence of intracardial thrombus * As per neurology recommendation Aggrenox switched to aspirin and Plavix, neurology informed, Dr. Chan will see the patient today. * We will continue cardiac monitoring for any arrhythmias * Frequent Neurochecks * PT is recommended discharge to short-term rehabilitation * Smoking cessation, History of hyperlipidemia: We'll continue home dose of niacin 500 mg daily, fenofibrate. History of hypertension: Lisinopril started low-dose, but continue to ensure permissive hypertension #Discharge disposition: Patient lives at [facility],, and there is a concern about his living conditions, this requiring reevaluation with immigration case worker tomorrow. Diet: Heart healthy/mechanical soft ground, nectar thick DVT prophylaxis with Lovenox Full code Problem List: 1. Acute CVA (cerebrovascular accident) Pain Ratin Pain Location: none Pain Goal: Remain pain free Pain Plan: [facility] Tomorrow's Labs & Rationales: none
--- NOTE | 2017-04-23 08:23 | Patient Discharge Instructions ---
Discharge Instructions General Discharge Information You were seen/treated for: Recurrent CVA(most likely due to medication noncompliance), less likely due to cryptogenic stroke Special Instructions: Please follow with the PCP within 1-2 weeks of discharge. Please follow-up with your neurologist within 1-2 weeks after discharge Please remain compliant with her medications Diet Recommended Diet: MECHANICAL SOFT NECTOR THICK DIET Activity Activity Self Limited: Yes Acute Coronary Syndrome Inclusion Criteria At DC or during hospital stay patient has or had the following: ACS DIAGNOSIS No Discharge Core Measures Meds if any: Prescribed or Continued at Discharge Meds if any: NOT Prescribed or Continued at Discharge Congestive Heart Failure Inclusion Criteria At DC or during hospital stay patient has or had the following: CHF DIAGNOSIS No Discharge Core Measures Meds if any: Prescribed or Continued at Discharge Meds if any: NOT Prescribed or Continued at Discharge Cerebrovascular accident Inclusion Criteria At DC or during hospital stay patient has or had the following: CVA/TIA Diagnosis Yes Discharge Core Measures Meds if any: Prescribed or Continued at Discharge Antithrombotic Yes Statin (required if LDL =>70) Yes Anticoagulant No Meds if any: NOT Prescribed or Continued at Discharge Venous thromboembolism Inclusion Criteria VTE Diagnosis No VTE Type NONE VTE Confirmed by (Test) NONE Discharge Core Measures - Per Current guidelines, there needs to be overlap - treatment for the first 5 days of Warfarin therapy. - If discharged on Warfarin prior to 5 days of - overlap therapy, the patient will need to be - assessed for post discharge needs including - *Post discharge parental anticoagulation - *Warfarin and/or parental anticoagulation education - *Follow up date to check INR post discharge At least 5 days overlap therapy as Inpatient No Meds if any: Prescribed or Continued at Discharge Note: Overlap Therapy is Warfarin and Anticoagulant Meds if any: NOT Prescribed or Continued at Discharge
--- NOTE | 2017-04-23 08:25 | NUR ---
Physical therapy: Attempted to see pt this AM for PT treatment. Patient off the floor for imaging studies. Will follow up later as appropriate. Thank you.
--- NOTE | 2017-04-23 12:31 | MRI REPORT ---
EXAMINATION: MR BRAIN WITHOUT CONTRAST MR ANGIOGRAPHY OF THE HEAD WITHOUT CONTRAST CLINICAL INFORMATION: New onset infarction within the right hemisphere. Fibromuscular dysplasia. Assess for CVA. COMPARISON: CT scan of the head 04/17/2017. TECHNIQUE: Multiplanar, multisequence imaging of the brain was obtained without intravenous administration of contrast. 3-D [id number]-[id number]-cypcpi MR angiography was performed. Multiple 3-D reformatted images were processed on the technologist workstation. Imaging is severely degraded by patient motion artifact on multiple sequences. Due to poor patient cooperation axial FLAIR and gradient sequences were not obtained. FINDINGS: MRI BRAIN: There is a large area of restricted diffusion in the distribution of the right middle cerebral artery, consistent with a territorial infarct. This region has increased T2 signal. On the sagittal T1 images, there are linear areas of intrinsically increased T1 signal, which may be consistent with lamina microhemorrhages. There is mild mass effect on the body of the right lateral ventricle. There is no midline shift. There are areas of increased T2 signal in the periventricular and subcortical white matter elsewhere, consistent with chronic microvascular ischemic changes. There is a lacunar infarct in the left cerebellar hemisphere. The brainstem is unremarkable. No extra-axial fluid collections are seen. The craniovertebral junction, marrow signal, and midline structures are normal. The mastoid air cells and paranasal sinuses are well-aerated. MRA HEAD: There is thinner caliber of the visualized distal cervical internal carotid arteries extending intracranially. The caliber is decreased in the cavernous and supraclinoid regions. There is poor signal from the proximal right middle cerebral artery; distal to this no significant flow is demonstrated. The A1 and A2 segments of the right anterior cerebral artery are not visualized. The left internal carotid artery in the neck, as well as intracranially is patent. The middle and anterior cerebral arteries on the left demonstrate good flow with normal arborization of the middle cerebral artery branches. In the posterior circulation, the right vertebral artery is dominant. There is poor demonstration of the left vertebral artery. The right vertebral artery is slightly irregular caliber but is patent. The basilar artery and its terminal branches are patent. The proximal left superior cerebellar artery has a thin caliber. The basilar artery appears normal. The posterior cerebral arteries have normal caliber. IMPRESSION: 1. There is a large acute territorial infarct involving the right middle cerebral artery distribution. Linear T1 hyperintensities may be consistent with gyral microhemorrhage. No gross hemorrhagic changes are demonstrated on the available images. 2. There is a background of chronic microvascular ischemic disease. 3. MR angiography demonstrates thin caliber of the right internal carotid artery compared to the left. No definite flow is demonstrated in the right anterior cerebral artery. There is poor flow in the proximal M1 segment of the right middle cerebral artery with almost no flow distally. Relatively normal flow is demonstrated on the left. Recommend follow-up CTA of the head and neck for better assessment of the vascular structures. 4. As described above, images are severely degraded by patient motion artifact on multiple sequences. This critical result was discussed with Lorie Powers by telephone on 04/23/2017 at 12:25 PM and it was ascertained that the content and urgency of the report was understood at the time of direct communication.
[2017-04-23] MEDS ORDERED: ASPIRIN EC81 M1 PO (15:33)
[2017-04-23] MEDS ORDERED: PLAVIX75 M1 PO (15:33)
--- NOTE | 2017-04-23 15:57 | PN- Neurology ---
Subjective Subjective: 46/M seen in neuro f/u as MRI has been completed. Was seen in consult by Dr. Watt 04/18 for acute CVA with left weakness rated at 3/5. Per Dr. Watt: " history of multiple early onset strokes presents with new complaints of left- sided weakness and dysarthria. His previous strokes have affected the left side of his body however he feels that this has really worsened over the last 24 hours. He has had extensive workup in [place] and other hospitals that have not yielded a clear cause for his early onset strokes. Patient claims that he has been told nothing about the results. Denies any family history of early onset cardiovascular disease." Currently very somnolent, unable to give any history Review of Systems: Denied headache, chest pain, further ROS not possible due to mental status Objective Vital Signs and I&Os Vital Signs Date Time Temp Pulse Resp B/P B/P Pulse O2 O2 Flow FiO2 Mean Ox Delivery Rate 04/23 1223 90 126/70 04/23 0018 97.9 90 20 126/70 95 Room Air 04/22 1603 98.3 93 20 122/74 95 Room Air Intake & Output 04/23 1600 04/23 0800 04/23 0000 04/22 1600 04/22 0800 04/22 0000 Intake Total 0 360 480 120 200 Output Total 150 350 300 325 Balance -150 10 180 120 -125 Intake, Oral 0 360 480 120 200 Number 1 0 Bowel Movements Output, Urine 150 350 300 325 Physical Exam: Obese, Looks comfortable, breathing regularly Somnolent, arouses briefly, follows simple commands, drifts back to sleep VFF to finger count EOMI effaced L NLF left 0/5 upper and 1-2/5 lower paresis reports perception of touch normally on left side left Babinski Current Medications: Current Medications Sig/Fermin Start time Last Medication Dose Route Stop Time Status Admin Acetaminophen 650 MG Q6P PRN 04/18 0145 AC PO Aspirin 81 MG DAILY 04/18 1429 AC 04/23 PO 1223 Atorvastatin Calcium 80 MG 1700 04/18 1700 AC 04/22 PO 1705 Benzonatate 100 MG TID PRN 04/19 1500 AC 04/23 PO 1223 Clopidogrel Bisulfate 75 MG DAILY 04/18 1429 AC 04/23 PO 1223 Enoxaparin Sodium 40 MG DAILY 04/18 1000 AC 04/23 SC 1224 Fenofibrate 48 MG DAILY 04/18 1000 AC 04/23 PO 1223 Guaifenesin/ 10 ML Q6P PRN 04/19 0100 DC 04/21 Dextromethorphan PO 1737 Lisinopril 5 MG DAILY 04/18 1438 AC 04/23 PO 1223 Meclizine HCl 12.5 MG TID PRN 04/18 0200 AC PO Niacin 500 MG DAILY 04/18 1000 AC 04/23 PO 1223 Oxycodone/ 1 TAB Q6P PRN 04/18 0145 AC Acetaminophen PO Results Last 24 Hours of Lab Results: CBC 04/19: WBC 7.3, HCT 38.1 BMP 04/19: OK Recent Imaging Studies: MRI MRA Brain 04/23: IMPRESSION: 1. There is a large acute territorial infarct involving the right middle cerebral artery distribution. Linear T1 hyperintensities may be consistent with gyral microhemorrhage. No gross hemorrhagic changes are demonstrated on the available images. 2. There is a background of chronic microvascular ischemic disease. 3. MR angiography demonstrates thin caliber of the right internal carotid artery compared to the left. No definite flow is demonstrated in the right anterior cerebral artery. There is poor flow in the proximal M1 segment of the right middle cerebral artery with almost no flow distally. Relatively normal flow is demonstrated on the left. Recommend follow-up CTA of the head and neck for better assessment of the vascular structures. ROSS: Left ventricle grossly normal. Normal right ventricular size and function. Normal right atrial size. Pacemaker wire noted in right heart. Mild left atrial dilatation. Left atrial appendage not well visualized, grossly normal. No evidence of thrombus or spontaneous contrast. Normal interatrial septum. No evidence of shunt flow by color Doppler or agitated saline ("bubble") study. No evidence of valvular vegetations. Trace mitral regurgitation. Trace tricuspid regurgitation. Assessment/Plan Assessment: Large Right MCA CVA confirmed. clinically worse than a few days ago, with increased deficit and reduced level of consciousnes. Occlusion/stenosis R MCA c/w zone of CVA, other areas of narrowing most likely due to intracranial atherosclerotic disease. Records from [facility] reviewed no evidence of vasculitis as per cerebral angiogram, hypercoagulable workup negative, the also did an LP there which did not reveal any evidence of an intracranial infection, most likely cause seems to be intracranial atherosclerosis insetting of bilateral carotid artery stenosis 50- 79% No available imaging of carotids in neck ROSS argues strongly against cardiac embolus Reduced level of consciousness could be due to large hemispheric CVA but would re-evaluate for metabolic or toxic cause Plan: Not stable for discharge needs imaging of cervical segment of carotids, CTA or Dopplers OK as patient poorly cooperative for MRI re-check CBC BMP UA
[2017-04-23 16:06] VITALS: BP 120/76
--- NOTE | 2017-04-23 19:34 | PN- Cardiology ---
Subjective Subjective: * This patient has had progression of his stroke clinically and cannot communicate. * The patient had his pacemaker put in surescan mode and underwent an MRI and MRA after obtaining consent from his mother. Objective Vital Signs and I&Os Vital Signs Date Time Temp Pulse Resp B/P B/P Pulse O2 O2 Flow FiO2 Mean Ox Delivery Rate 04/23 1606 98.0 81 20 120/76 95 Room Air 04/23 1223 90 126/70 04/23 0018 97.9 90 20 126/70 95 Room Air Intake & Output 04/23 1600 04/23 0800 04/23 0000 04/22 1600 04/22 0800 04/22 0000 Intake Total 675 0 360 480 120 200 Output Total 800 150 350 300 325 Balance -125 -150 10 180 120 -125 Intake, Oral 675 0 360 480 120 200 Number 1 1 0 Bowel Movements Output, Urine 800 150 350 300 325 Physical Exam: General: WD/WN male in NAD; lethargic with dysarthria Neck: no JVD, no carotid bruit Heart: RRR w/o murmur Lungs: clear bilaterally Ext: no edema Assessment/Plan Assessment/Plan * MRA done. No obvious thrombus or shunt detected on his ROSS. Follow neurology recommendations. Continue telemetry? Yes
[2017-04-24 01:16] VITALS: BP 118/80
--- NOTE | 2017-04-24 07:19 | PN- Housestaff ---
DALIA GRIGSBY,[facility] 04/24/17 0719: Subjective Follow-up For: CVA Tele-Events Since Last Visit: Normal sinus rhythm, heart rate between 73-84 Subjective: Patient seen and examined this morning. He was lying in bed in no acute distress. Vitals within normal limits, hemodynamically stable. Continues to have left facial droop, left upper extremity weakness. Offers no complaints. Review of Systems Constitutional: Reports: see HPI. Objective Last 24 Hrs of Vital Signs/I&O Vital Signs Date Time Temp Pulse Resp B/P B/P Pulse O2 O2 Flow FiO2 Mean Ox Delivery Rate 04/24 0907 82 144/90 04/24 0817 98.5 70 20 144/90 94 Room Air 04/24 0116 98.0 83 20 118/80 95 Room Air 04/23 1606 98.0 81 20 120/76 95 Room Air 04/23 1223 90 126/70 Intake & Output 04/24 1600 04/24 0800 04/24 0000 Intake Total 100 240 Output Total 200 300 Balance -100 -60 Intake, Oral 100 240 Output, Urine 200 300 Physical Exam General Appearance: Alert, No Acute Distress Cardiovascular: Regular Rate, Normal S1, Normal S2, No Murmurs Lungs: Clear to Auscultation, Normal Air Movement Abdomen: Normal Bowel Sounds, Soft, No Tenderness Neurological: slurred speech, left facial droop, pupils reactive to light bilaterally, left upper extremity power 0/5, left lower extremity power 2/5 Extremities: No Clubbing, No Cyanosis, No Edema Assessment/Plan Assessment: 46-year-old gentleman current smoker with a history of hypertension, hyperlipidemia, dyslipidemia, status post dual-chamber pacemaker secondary to symptomatic bradycardia, Multiple strokes involving right MCA and RICK, residual left lower extremity weakness, after one of his strokes in October 2016 extensive workup was done at [place] for vasculitis with no remarkable findings, recently admitted to [facility] in 04/03/17 for CVA and was discharged on aggregnox, BIBA by ambulance for worsening LUE weakness and slurring of speech. In the past he has been extensively worked up for CVA. MRI done last year showed multiple acute to subacute infarcts involving the right frontal and parietal lobes inclusive of the right perirolandic region, some of which appear watershed , and some of which are located within the right RICK and MCA territories. EEG done at that time showed structural abnormality of the left frontal and right temporal head regions, CT head and neck showed extensive intracranial atherosclerosis with marked irregularity and multifocal narrowing. Extensive workup has been done in [place] last year revealed no evidence of vasculitis as per cerebral angiogram, hypercoagulable workup negative, the also did an LP there which did not reveal any evidence of an intracranial infection, most likely cause seems to be intracranial atherosclerosis insetting of bilateral carotid artery stenosis 50-79% , he also continues to smoke and not following appropriate likely dietry restrictions insetting of being overweight and not being able to exercise secondary to stoke related residual weakness. Upon this admission he presents with slurred speech, left-sided facial droop, left upper extremity weakness, with likely new onset infarction within the right hemisphere in the setting of multiple previous large territory infarctions. Neurology on board, MRI showed evidence of large acute territorial infarct involving the right middle cerebral artery, ROSS did not show any evidence of intracardial thrombus * Carotid Doppler did not show any hemodynamically significant stenosis, but she did have a carotid Doppler done last year which showed 49-75% bilateral stenosis , will order a CTA. * We will continue cardiac monitoring for any arrhythmias * Frequent Neurochecks * PT is recommended discharge to short-term rehabilitation * Smoking cessation, History of hyperlipidemia: We'll continue home dose of niacin 500 mg daily, fenofibrate. History of hypertension: Lisinopril started low-dose, but continue to ensure permissive hypertension #Discharge disposition: Patient lives at [facility],, and there is a concern about his living conditions, this requiring reevaluation with rn case manager tomorrow. Diet: Heart healthy/mechanical soft ground, nectar thick DVT prophylaxis with Lovenox Full code Problem List: 1. Acute CVA (cerebrovascular accident) Pain Ratin Pain Location: none Pain Goal: Remain pain free Pain Plan: [facility] Tomorrow's Labs & Rationales: cbc darlyn GABRIEL MD,SUSIE 04/24/17 1320: Attending MD Review Statement Attending Statement Attending MD Statement: examined this patient, discuss w/resident/PA/EAR NOSE THROAT PHYSICIAN, agreed w/resident/PA/EAR NOSE THROAT PHYSICIAN, reviewed EMR data (avail), discussed with nursing, discussed with case mgmt, amended to note Attending Assessment/Plan: Patient seen and examined. No issues overnight. No events on telemetry monitoring. Patient laying bed not in acute distress. He has very flat affect. He did not answer questions but did follow commands appropriately. On neurologic examination he has left facial droop as well as left-sided weakness. Neurology follow-up appreciated. Carotid Dopplers were done however there is discrepancy between the current results and previous results. Ultrasound yesterday showed non-hemodynamically significant stenosis of bilateral internal carotid arteries corresponding to a 0-49% stenosis. Carotid Dopplers done in September 2016 show stenosis of 50-79% bilaterally. It is noted that carotid Dopplers done last month showed no significant stenosis bilaterally. These findings were discussed with the radiologist. CT angiogram recommended. Currently there is no other metabolic pathology that would explain his flat affect. Recommendations: -Obtain a CT angiogram of the head and neck. -Follow-up with the neurology service regarding the antibiotic therapy that patient should be discharged on. - Patient will require care in a skilled also facility possibly long-term.
--- NOTE | 2017-04-24 07:19 | ULTRASOUND REPORT ---
EXAMINATION: DUPLEX BILATERAL CAROTID ULTRASOUND CLINICAL INFORMATION: CVA with weakness. COMPARISON: Prior carotid ultrasound examinations, most recently 03/31/2017. TECHNIQUE: Real-time ultrasound and Doppler techniques (integrating B-mode 2D vascular images, Doppler spectral analysis and color flow Doppler imaging) were utilized to interrogate the extracranial carotid and vertebral arteries bilaterally. FINDINGS: Right side: 1. There is mild hyperechoic plaque in the ECA/ICA region. 2. The common carotid artery velocity is 108 cm/s. 3. The proximal internal carotid artery velocities are 64 cm/s systolic and 14 cm/s diastolic. 4. The external carotid artery velocity is 116 cm/s. Left side: 1. There is mild hyperechoic plaque in the ECA/ICA region. 2. The common carotid artery velocity is 135 cm/s. 3. The proximal internal carotid artery velocities are 57 cm/s systolic and 21 cm/s diastolic. 4. The external carotid artery velocity is 108 cm/s. ADDITIONAL FINDINGS: 1. The vertebral arteries are not visualized. IMPRESSION: 1. RIGHT: Minimal, nonhemodynamically significant stenosis of the proximal right internal carotid artery corresponding to a 0-49% stenosis by velocity criteria. 2. LEFT: Minimal, nonhemodynamically significant stenosis of the proximal left internal carotid artery corresponding to a 0-49% stenosis by velocity criteria. 3. The bilateral vertebral arteries are nonvisualized.
[2017-04-24 08:04] LABS: ABSOLUTE BASOPHIL COUNT 0 /CUMM (0.0-0.2); ABSOLUTE EOSINOPHIL COUNT 0.1 /CUMM (0.0-0.7); ABSOLUTE GRANULOCYTE CT 7.3 /CUMM (1.4-6.5); ABSOLUTE LYMPH COUNT 2.1 /CUMM (1.2-3.4); ABSOLUTE MONOCYTE COUNT 0.7 /CUMM (0.10-0.60); BASOPHIL % 0.5 % (0.0-2.0); GRANULOCYTE % 71.7 % (42.2-75.2); MEAN CORPUSCULAR HGB 26.9 PG (27.0-31.0); MEAN CORPUSCULAR HGB CONC 32.7 G/DL (33.0-37.0); MEAN CORPUSCULAR VOLUME 82.2 FL (80.0-94.0); MEAN PLATELET VOLUME 9.8 FL (7.4-10.4); PLATELET COUNT 251 /CUMM (130-400); RBC DISTRIBUTION WIDTH 14.4 % (11.5-14.5); RED BLOOD CELL CT 4.99 /CUMM (4.70-6.10); WHITE BLOOD CELL COUNT 10.2 /CUMM (4.8-10.8)
[2017-04-24 08:17] VITALS: BP 144/90
[2017-04-24 16:10] VITALS: BP 122/80
[2017-04-25 00:35] VITALS: BP 128/90
--- NOTE | 2017-04-25 07:58 | NUR ---
NURSING NOTE, LATE ENTRY: 04/24/[address] [facility] THIS RN AND PT HAD 15-20MIN CONVERSATION ABOUT PT FAMILY. PT WAS ABLE TO EXPLAIN THE ORDER OF HIS SIBLINGS, HOW HIS YOUNGER BROTHER IS NAMED AFTER HIS FATHER, AND HOW HIS SISTER HAS DOWNS SYNDROME. PT ALSO EXPLAINED HE HAD STEP SIBLINGS AND ASKED ME THE ORIGIN OF MY NAME. PTS SPEECH WAS MOSTLY SLOW AND SLIGHTLY SLURRED, BUT ABLE TO BE UNDERSTOOD.
--- NOTE | 2017-04-25 08:39 | PN- Housestaff ---
KELSEA VALENCIA 04/25/17 0839: Subjective Follow-up For: large acute territorial infarct involving the right middle cerebral artery distribution. Tele-Events Since Last Visit: Sinuses the heart rate in the range of 63-87 with PVCs Subjective: She is seen and examined this morning, lying comfortably in bed(not willing to talk at this time) Remained afebrile overnight, blood pressure stable. Offers no complaints. Patient seen and examined this morning. He was lying in bed in no acute distress. .Continues to have left facial droop, left upper extremity weakness. Offers no complaints. Review of Systems Constitutional: Denies: chills, diaphoresis, fever. EENTM: Denies: blurred vision, double vision, visual changes. Cardiovascular: Denies: chest pain, edema, orthopena. Respiratory: Denies: cough, hemoptysis, orthopnea. Gastrointestinal: Denies: abdominal pain, bloating, diarrhea. Genitourinary: Denies: discharge, dysuria, frequency. Objective Last 24 Hrs of Vital Signs/I&O Vital Signs Date Time Temp Pulse Resp B/P B/P Pulse O2 O2 Flow FiO2 Mean Ox Delivery Rate 04/25 0035 99.0 78 20 128/90 93 04/24 1610 98.6 61 16 122/80 95 Room Air Intake & Output 04/25 1600 04/25 0800 04/25 0000 Intake Total 120 440 Output Total 225 350 Balance -105 90 Intake, IV 0 0 Intake, Oral 120 440 Number 0 0 Bowel Movements Output, Urine 225 350 Physical Exam General Appearance: Alert Skin: No Rashes HEENT: Atraumatic Cardiovascular: Regular Rate, Normal S1, No Murmurs Lungs: Clear to Auscultation Neurological: slurred speech with left facial droop pupils reactive to light bilaterall motor strength 0/5 in left upper extremity, 2/5 in the left lower extremity upper extremity Extremities: No Clubbing, No Cyanosis Current Medications: Current Medications Sig/Fermin Start time Last Medication Dose Route Stop Time Status Admin Acetaminophen 650 MG Q6P PRN 04/18 0145 AC PO Aspirin 81 MG DAILY 04/18 1429 AC 04/24 PO 0906 Atorvastatin Calcium 80 MG 1700 04/18 1700 AC 04/24 PO 1656 Benzonatate 100 MG TID PRN 04/19 1500 AC 04/23 PO 1223 Clopidogrel Bisulfate 75 MG DAILY 04/18 1429 AC 04/24 PO 0907 Enoxaparin Sodium 40 MG DAILY 04/18 1000 AC 04/24 SC 0906 Fenofibrate 48 MG DAILY 04/18 1000 AC 04/24 PO 0907 Guaifenesin/ 10 ML Q6P PRN 04/24 2015 AC 04/24 Dextromethorphan PO 2025 Lisinopril 5 MG DAILY 04/18 1438 AC 04/24 PO 0907 Meclizine HCl 12.5 MG TID PRN 04/18 0200 AC PO Niacin 500 MG DAILY 04/18 1000 AC 04/24 PO 0906 Oxycodone/ 1 TAB Q6P PRN 04/18 0145 DC Acetaminophen PO Ramelteon 8 MG ONCE ONE 04/24 2100 DC 04/24 PO 04/24 2101 2124 Last 24 Hrs of Lab/Chong Results Last 24 Hrs of Labs/Mics: Laboratory Tests 04/24/17 1330: Urinalysis LIGHT H, Urine Color YEL, Urine Clarity CLEAR, Urine pH 6.0, Ur Specific [place] >= 1.030, Urine Protein TRACE H, Urine Ketones NEG, Urine Nitrite NEG, Urine Bilirubin NEG@ICTO, Urine Urobilinogen 1.0, Ur Leukocyte Esterase NEG, Ur Microscopic SEDIMENT EXAMINED, Urine WBC RARE, Ur Epithelial Cells RARE, Urine Bacteria RARE H, Urine Mucus MOD H, Urine Hemoglobin NEG, Urine Glucose NEG Assessment/Plan Assessment: 46-year-old gentleman current smoker with a history of hypertension, hyperlipidemia, dyslipidemia, status post dual-chamber pacemaker secondary to symptomatic bradycardia, Multiple strokes involving right MCA and RICK, residual left lower extremity weakness, after one of his strokes in October 2016 extensive workup was done at [facility] for vasculitis with no remarkable findings, recently admitted to [facility] in 04/03/17 for CVA and was discharged on aggregnox, BIBA by ambulance for worsening LUE weakness and slurring of speech. In the past he has been extensively worked up for CVA. MRI done last year showed multiple acute to subacute infarcts involving the right frontal and parietal lobes inclusive of the right perirolandic region, some of which appear watershed , and some of which are located within the right RICK and MCA territories. EEG done at that time showed structural abnormality of the left frontal and right temporal head regions, CT head and neck showed extensive intracranial atherosclerosis with marked irregularity and multifocal narrowing. Extensive workup has been done in [facility] last year revealed no evidence of vasculitis as per cerebral angiogram, hypercoagulable workup negative, the also did an LP there which did not reveal any evidence of an intracranial infection, most likely cause seems to be intracranial atherosclerosis insetting of bilateral carotid artery stenosis 50-79% , he also continues to smoke and not following appropriate likely dietry restrictions insetting of being overweight and not being able to exercise secondary to stoke related residual weakness. Upon this admission he presents with slurred speech, left-sided facial droop, left upper extremity weakness, with likely new onset infarction within the right hemisphere in the setting of multiple previous large territory infarctions. Neurology on board, MRI showed evidence of large acute territorial infarct involving the right middle cerebral artery, ROSS did not show any evidence of intracardial thrombus * Doppler carotid ultrasound was done but there was some discrepancy between the carotid and the previous results. * Imaging done this time showed non-hemodynamically significant stenosis of bilateral internal carotid arteries corresponding to a 0-49% stenosis however carotid ultrasound done in September 2016 show stenosis of 50-79% bilaterally. * CT neck was done that showed similar results (Mild (less than 50%) nonocclusive bilateral carotid bulb stenoses secondary to eccentric nonulcerative atherosclerotic plaque) * Continue aspirin and Plavix. * Patient is stable to be discharged to [facility] today * Smoking cessation, History of hyperlipidemia: We'll continue home dose of niacin 500 mg daily, fenofibrate. History of hypertension: Patient has been on low-dose lisinopril 5 mg twice a day since admission, his blood pressure has been stable will continue with the same dose on discharge. Continue to hold hydrochlorothiazide #Discharge disposition: Patient will be discharged to [facility] today. Diet: Heart healthy/mechanical soft ground, nectar thick DVT prophylaxis with Lovenox Full code Problem List: 1. Acute CVA (cerebrovascular accident) Pain Ratin Pain Location: No pain at this time Pain Goal: Pain 4 or less Pain Plan: When necessary Tylenol Leukocytosis repeat CBC tomorrow Tomorrow's Labs & Rationales: CBC tomorrow Leukocytosis SUSIE GABRIEL MD 04/25/17 1056: Attending Review Statement Attending Statement Attending Statement: examined this patient, discuss w/resident/PA/ROBOTIC TECHNICIAN, agreed w/resident/PA/ROBOTIC TECHNICIAN, reviewed EMR data (avail), discussed with nursing, discussed with case mgmt, amended to note Attending Assessment/Plan: Patient seen and examined. Resting comfortable and not in any acute distress. No events on telemetry. Nursing staff that care for the patient last night states that he was able to have a conversation [id number] with the patient overnight. This morning patient is a alert and oriented 3. He remains in a flat affect but is able to maintain conversation. He however persists with his facial droop and left-sided weakness. He otherwise has no changes in neurologic deficits. CT angiogram of the neck vasculature done yesterday shows less than 50% nonocclusive disease in the carotid bulb bilaterally. 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 His diagnosis was entertained last year and he was transferred to [facility] neurovascular surgery service for evaluation. No surgical intervention was pursued at that time. At this point in time his mild mental consistent of antiplatelet therapy, lipid-lowering therapy and blood pressure control. Patient has been counseled in the need for compliance with medication therapy. He will be discharged to nursing home facility today for short-term rehabilitation. Unfortunately due to the extent of his disease there is high incidence of recurrent neurologic deficits. Her lisinopril was decreased to 5mg to allow for permissive hypertension. His BP has been acceptable on this dose. He has not required HCTZ. We will continue oo Lisinopril 5mg daily with close monitotring of her BP.
[2017-04-25 09:46] VITALS: BP 122/88
--- NOTE | 2017-04-25 10:21 | CT SCAN REPORT ---
EXAMINATION: CT ANGIOGRAM NECK CLINICAL INFORMATION: Bilateral carotid stenoses. Discordant carotid ultrasound assessment of the degree of carotid stenoses between the carotid ultrasound examinations of 04/23/2017 and 04/25/2017. COMPARISON: Carotid ultrasound 09/28/2016, 04/23/2017, CT angiography of the neck 09/28/2016, CT chest 09/25/2016, MR angiography head 04/23/2017, MRI brain 04/23/2017. TECHNIQUE: Test bolus sequences followed by administration of 100 mL of Omnipaque 300 intravenous contrast. Helical imaging was performed in the axial plane of the neck. The data was processed at the lead cytogenetic technologist workstation for generation of MIP sequences. Carotid stenoses are represented with reference to the NASCET criteria unless specifically stated otherwise. Intravenous contrast: Optiray 350 95 ml. DLP: 1015 mGy-cm FINDINGS: Right carotid bulb: Eccentric predominantly calcific atherosclerotic plaque is present in the right carotid bulb. No ulcerative plaque is present in this region. The minimum transaxial flow lumen dimensions at the point of maximum stenosis measure 3.4 mm x 3.2 mm (axial image 287/466). The distal right internal carotid artery at multiple points demonstrates a flow lumen diameter of generally 3.0 mm (human resources representative image 336/466). On this basis and with utilization of the NASCET criteria, the right carotid bulb stenosis 80 characterized as mild (less than 50%). Left carotid bulb: Mild, eccentric nonulcerative prominently calcific atherosclerotic plaque is present in the right carotid bulb. The point of maximal transaxial stenosis (image [id number]/466 demonstrates a measured transaxial flow lumen of 3.2 mm x 3.7 mm. The distal right internal carotid artery demonstrates human resources representative transaxial dimensions ranging between 3.0 mm and 3.2 mm. On this basis and with utilization of the NASCET criteria, the right carotid bulb stenosis 80 characterized as mild (less than 50%). The common carotid arteries distal to the carotid bulbs and straight normal caliber and contour without evidence of diffuse arteriopathy. Additional findings: Within the incidentally visualized mediastinum, prominent superior vena spinal fat or possible residual fatty thymic tissue is present and grossly unchanged compared with CT the chest from 09/25/2016. Scattered nonocclusive calcific atherosclerosis is noted in the transverse aorta. Conventional branching anatomy of the great vessels in relation to the transverse aorta is noted. Partial visualization is made of atrioventricular pacer leads within the left brachiocephalic vein and a left pectoral generator. Mild nonocclusive segmental noncalcific atherosclerosis is present in the common carotid arteries bilaterally. Within the incidentally visualized portions of the head, segmental contour irregularity of the cavernous portion of the right internal carotid artery is present with marked focal narrowing of the proximal portion of the cavernous right internal carotid artery. A minimum transaxial flow lumen diameter in this region measures approximately 1.5 mm (axial image 402/466). Moderate narrowing of the flow lumen of the remainder of the cavernous portion of the internal carotid artery on the right is noted. Moderate segmental narrowing in scattered calcific atherosclerosis of the cavernous portion of the left internal carotid artery. Furthermore, the M1 segments of the left and right middle cerebral arteries are markedly diminutive particularly on the right with findings grossly similar to the examination of 09/28/2016. A narrow caliber A1 segment of the left anterior cerebral artery is noted. A 1 segment of the right anterior cerebral arteries not visualized. The right vertebral artery is dominant. Focal mural calcifications are noted in the proximal intradural segment of the left vertebral artery. Intraluminal opacification of the intradural segment of the left vertebral artery proximal to the left [employer] origin is not present. Distal to the [employer] origins, the left and right vertebral arteries are diminutive in caliber and the basilar artery is diffusely diminutive measuring approximately 2 mm diameter. Diminutive posterior cerebral arteries are present. Posterior communicating arteries are not identified. The above findings are commensurate with findings noted on the MR angiography study of the brain from 04/23/2017. Partial visualization is made of cytotoxic edema within the right cerebral hemisphere consistent with the previously reported acute infarct. Within the fortuitously visualized portions of the neck, no gross lymphadenopathy is identified. The larynx and pharynx are grossly normal in appearance. No abnormalities of the major salivary glands are identified. Left and right superficial temporal arteries are normal in appearance. IMPRESSION: 1. Mild (less than 50%) nonocclusive bilateral carotid bulb stenoses secondary to eccentric nonulcerative atherosclerotic plaque. 2. Findings suspicious for moyamoya disease. Specifically, within the incidentally visualized intracranial vasculature, segmental narrowing and contour irregularity of the intracranial internal carotid arteries, basilar artery and proximal anterior, middle and posterior cerebral artery segments is present in a configuration suspicious for moyamoya syndrome/arteriopathy. Findings include marked focal stenosis of the proximal cavernous portion of the right internal carotid artery out of proportion to the degree of mild segmental calcific atherosclerosis also noted within the cavernous portions of the internal carotid arteries. 3. Partially visualized right hemispheric acute infarct as visualized to better advantage on the comparison MRI of 04/23/2017. 4. No evidence of fibromuscular dysplasia. Normal appearance of the cervical segments of the internal carotid arteries without evidence of arteriopathy.
--- NOTE | 2017-04-25 10:28 | NUR ---
PT WANTED TO TRY TO WALK TO BATHROOM. I SAT PT AT EDGE OF BED AND HE FELT VERY LIGHTHEADDED AND DIZZY. PT BLOOD PRESSURE WAS 68/30. PT LAYED BACK DOWN AND PUT INTO TRENDELENBERG POSITION. 1003 WILL CALL ORDER CLERK NICHELLE AWARE AND ORDERED TO START A NORMAL SALINE 1000ML FLUID BOLUS. 1005 PT STATES HE FEELS MUCH BETTER LAYING DOWN. WILL CONTINUE TO MONITOR PT.
[2017-04-25] MEDS ORDERED: LISINOPRIL5 M1 PO (10:37)
[2017-04-25 12:41] VITALS: BP 122/88
== END 2017-04-25 13:30 | DRG 45 ==
LOC: ERH 21:51 → 1NO 04-18 00:47 → ERHI 04-18 00:47 → ENRESERV 04-18 01:40 → 1NO 04-18 02:14 → ENPENDDIS 04-25 11:50 → 1NO 04-25 13:30
PROVIDERS: Internal Medicine Hematology & Oncology; Internal Medicine Infectious Disease; Physician Assistant Medical; Student in an Organized Health Care Education/Training Program; ADMIT Student in an Organized Health Care Education/Training Program
DX: I63.9 Cerebral infarction, unspecified (principal); G93.89 Other specified disorders of brain; G81.94 Hemiplegia, unspecified affecting left nondominant side; I10 Essential (primary) hypertension; F17.200 Nicotine dependence, unspecified, uncomplicated; I69.398 Other sequelae of cerebral infarction; E78.5 Hyperlipidemia, unspecified; Z95.0 Presence of cardiac pacemaker; Z91.14 Patient's other noncompliance with medication regimen; E66.9 Obesity, unspecified; Z68.38 Body mass index [BMI] 38.0-38.9, adult
CPT/HCPCS: 1NSP; 70551; 70555; 36415; 81001; 82436; 93005; 93010; 93325; 97110-GO; 97112-GO; 97116-GO; 97162-GP; 97166-GO; 97530-GO; J1650; J3490

== ENCOUNTER 2017-05-25 11:50 | Observation (INO) | payer OTHER ==
[~2017-05-25] VITALS: Ht 188 cm; Wt 125.6 kg
[~2017-05-25 11:50] MED LIST changes: +ASPIRIN EC81 M1 PO; +LISINOPRIL5 M1 PO; +PLAVIX75 M1 PO
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
--- NOTE | 2017-05-25 12:30 | CT SCAN REPORT ---
EXAMINATION: CT HEAD WITHOUT CONTRAST CLINICAL INFORMATION: Left-sided weakness. COMPARISON: Brain MRI from 04/23/2017. TECHNIQUE: Contiguous axial imaging was performed from the skull base to vertex without intravenous administration of contrast. DLP: 630.65 mGy-cm FINDINGS: There are extensive areas of low density change from a chronic evolving right MCA territorial infarct involving the right vpjubv-fpiynaog-rjsrsddd lobes and right insular cortex, noted on the previous MRI examination. There is a chronic infarct in the anterior inferior left frontal lobe with ex vacuo dilatation of the left lateral ventricle. Scattered chronic white matter microangiopathic changes are noted with chronic lacunar infarcts in the left basal ganglia. There is evidence of Wallerian degeneration in the thoracic brainstem on the right side. There is no evidence of acute intracranial hemorrhage or new territorial infarction. No abnormal mass effect or midline shift is seen. No extra-axial fluid collections are identified. There is no hydrocephalus. The osseous structures and soft tissues are normal. The mastoid air cells and visualized portions of the paranasal sinuses are well aerated. IMPRESSION: Chronic evolving right MCA territorial infarction. Chronic infarct in the left frontal lobe. Chronic lacunar infarcts in the left basal ganglia. No acute intracranial hemorrhage. The possibility of a superimposed acute infarct cannot be ruled out, given the extent of chronic disease. Imaging findings discussed with Dr. Guevara at 12:25 PM on 05/25/2017.
[2017-05-25 12:49] LABS: ABSOLUTE BASOPHIL COUNT 0 /CUMM (0.0-0.2); ABSOLUTE EOSINOPHIL COUNT 0 /CUMM (0.0-0.7); ABSOLUTE GRANULOCYTE CT 7.8 /CUMM (1.4-6.5); ABSOLUTE LYMPH COUNT 1.6 /CUMM (1.2-3.4); ABSOLUTE MONOCYTE COUNT 0.3 /CUMM (0.10-0.60); BASOPHIL % 0.3 % (0.0-2.0); EOSINOPHIL % 0.5 % (0-5); GRANULOCYTE % 79.4 % (42.2-75.2); HEMATOCRIT 43.8 % (42-52); MEAN CORPUSCULAR HGB 26.9 PG (27.0-31.0); MEAN CORPUSCULAR VOLUME 81.5 FL (80.0-94.0); MEAN PLATELET VOLUME 10.1 FL (7.4-10.4); PLATELET COUNT 220 /CUMM (130-400); RED BLOOD CELL CT 5.37 /CUMM (4.70-6.10); WHITE BLOOD CELL COUNT 9.9 /CUMM (4.8-10.8)
[2017-05-25 12:51] LABS: PT 11.6 SEC (9.4-12.5)
--- NOTE | 2017-05-25 13:50 | CT SCAN REPORT ---
EXAMINATION: CT ANGIOGRAM HEAD CLINICAL INFORMATION: Altered mental status. COMPARISON: MR angiogram of the head 04/23/2017. TECHNIQUE: Test bolus sequences followed by intravenous administration 95 mL of Optiray 320 intravenous contrast. Helical imaging was performed in the axial plane from the mediastinum to the skull vertex. Delayed postcontrast imaging of the head was also performed. The data was processed at the blood bank technologist's workstation for generation of MIP sequences. Three-dimensional volume rendered reformatted images were also generated at an offline 3-D workstation. DLP: 1927.42 mGy-cm FINDINGS: Head: An evolving infarct within the right cerebral hemisphere is redemonstrated. A small chronic cortical infarct within the left frontal operculum and extensive chronic watershed ischemic changes between the major vascular territories within the right cerebral hemisphere are also redemonstrated. Overall there has been no substantial change when compared to the recent CT scan of the head performed on the same day. There is no intracranial mass effect or midline shift. No abnormal extra-axial collection. Lateral and third ventricles are proportionate to the subarachnoid spaces. No hydrocephalus. CT Angiogram: There is extensive chronic vascular disease that remains essentially unchanged when compared to the MR angiogram of the brain from 04/23/2017. The left intradural vertebral artery is occluded however there is distal reconstitution presumably related to cross-filling via the contralateral right vertebral artery. There is diffuse irregular narrowing of the basilar artery and the posterior cerebral artery complexes. No proximal large vessel occlusion. There is diffuse irregular narrowing involving the cavernous segments of both internal carotid arteries, greater on the right. The M1 segment of the right middle cerebral artery is completely occluded with partial reconstitution of distal branches. The right A1 segment does not fill and there is segmental stenosis or occlusion within the A2 and A3 segments of the right anterior cerebral artery. 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 There is mild diffuse disease involving the left anterior and middle cerebral artery complexes with no evidence of proximal large vessel occlusion. IMPRESSION: An evolving infarct within the right cerebral hemisphere is redemonstrated which is superimposed upon a chronic cortical infarct involving left frontal operculum as well as extensive watershed ischemic changes between the vascular territories of the right cerebral hemisphere. The CT angiogram of the head has remained essentially unchanged when compared to the MR angiogram from 04/23/2017 with conclusions of the M1 segment of the right and middle cerebral artery and the intradural left vertebral artery. No new proximal large vessel occlusion is evident.
--- NOTE | 2017-05-25 13:53 | RADIOLOGY REPORT ---
EXAMINATION: XR PORTABLE CHEST CLINICAL INFORMATION: Acute mental status change. Evaluation for aspiration pneumonia. COMPARISON: Previous chest x-ray most recent April 2017 TECHNIQUE: Portable frontal view of the chest was obtained. FINDINGS: The cardiac and mediastinal contours are stable. There is a left subclavian dual chamber pacemaker unchanged in position. The lungs are clear without evidence of pneumonia. There is no pleural effusion or pneumothorax. IMPRESSION: No evidence for acute disease in the chest.
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
[2017-05-25] MEDS ORDERED: ATORVASTATIN CA80 M1 PO (14:31)
[2017-05-25] MEDS ORDERED: LOSARTAN POTASS50 M1 PO (14:33)
[2017-05-25] MEDS ORDERED: FLUOXETINE HCL20 M2 PO (14:33)
[2017-05-25] MEDS ORDERED: DAILY MULTIPLE1 EACH PO (14:34)
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
[2017-05-25 16:56] VITALS: BP 136/88
[2017-05-25 22:53] VITALS: BP 148/88
[2017-05-26 06:00] VITALS: BP 158/98
--- NOTE | 2017-05-26 07:44 | Patient Discharge Instructions ---
Discharge Instructions General Discharge Information You were seen/treated for: ALTERED MENTAL STATUS Special Instructions: 1. Please f/u with your pcp within 1 week of discharge. 2. Please f/u with the neurologist within 2 week sod discharge.. 3. If any further episodes patient will need an MRI and EEG and further neurological work up Diet Recommended Diet: Regular Activity Full Activity/No Limits: Yes (as tolerated) Acute Coronary Syndrome Inclusion Criteria At DC or during hospital stay patient has or had the following: ACS DIAGNOSIS No Discharge Core Measures Meds if any: Prescribed or Continued at Discharge Meds if any: NOT Prescribed or Continued at Discharge Congestive Heart Failure Inclusion Criteria At DC or during hospital stay patient has or had the following: CHF DIAGNOSIS No Discharge Core Measures Meds if any: Prescribed or Continued at Discharge Meds if any: NOT Prescribed or Continued at Discharge Cerebrovascular accident Inclusion Criteria At DC or during hospital stay patient has or had the following: CVA/TIA Diagnosis No Discharge Core Measures Meds if any: Prescribed or Continued at Discharge Meds if any: NOT Prescribed or Continued at Discharge Venous thromboembolism Inclusion Criteria VTE Diagnosis No VTE Type NONE VTE Confirmed by (Test) NONE Discharge Core Measures - Per Current guidelines, there needs to be overlap - treatment for the first 5 days of Warfarin therapy. - If discharged on Warfarin prior to 5 days of - overlap therapy, the patient will need to be - assessed for post discharge needs including - *Post discharge parental anticoagulation - *Warfarin and/or parental anticoagulation education - *Follow up date to check INR post discharge At least 5 days overlap therapy as Inpatient No Meds if any: Prescribed or Continued at Discharge Note: Overlap Therapy is Warfarin and Anticoagulant Meds if any: NOT Prescribed or Continued at Discharge
--- NOTE | 2017-05-26 07:53 | Discharge Summary ---
Visit Information Visit Dates Admission Date: 05/25/17 Discharge Date: 05/26/2017 Hospital Course Course Attending Physician: YOON MUÑOZ MD Primary Care Physician: BLANK GRIGSBY,[facility] Course: This is 46-year-old morbidly obese man with past medical history significant for hypertension, hyperlipidemia, symptomatic bradycardia status post permanent pacemaker,history of recurrent strokes involving right MCA and RICK on aspirin and Plavix, residual left lower extremity weakness, recently and discharged from [facility] in March 2017 after being evaluated for CVA was brought to the ED from [facility] for increased weakness and slurring of speech. Head CT showed chronic involving the right MCA territorial infarct, chronic infarct in the left frontal lobe , chronic lacunar infarcts in basal ganglia. No hemorrhage. Chronic cortical infarct, extensive watershed ischemic changes unchanged from previous examination. No new proximal large vessel occlusion was seen. Patient patient was evaluated by neurology who felt that patient has no new acute stroke on CAT scan and MRI. His weakness and symptoms had resolved by the time he was seen in the ER. He had no new deficits other than the baseline deficits. He was closely monitored on telemetry and no arrhythmias were noted. He passed swallow evaluation and started on regular diet and thin liquids all his home meds were continued. Patient was discharged to [facility] with follow-up recommendations with neurology and PCP. Allergies: Coded Allergies: NO KNOWN ALLERGIES (07/10/15) Disposition Summary Disposition Principal Diagnosis: ALTERED MENTAL STATUS and weakness Additional Diagnosis: History of recurrent CVA Discharge Disposition: SNF Discharge Instructions General Discharge Information Code Status: Full Code Patient's Diet: Regular with thin liquids Patient's Activity: As tolerated Follow-Up Instructions/Appts: 1. Please f/u with your pcp within 1 week of discharge. 2. Please f/u with the neurologist within 2 week sod discharge.. Medications at Discharge Discharge Medications: Continue taking these medications: Niacin (Niacin) 500 MG CAPSULE.ER 1 Capsule ORAL DAILY Days = 30 Comments: Last Taken: 05/26/17 Time: 9:06AM Fenofibrate (Fenofibrate) 54 MG TABLET 1 Tablet ORAL 5 PM Qty = 30 Comments: Last Taken: 05/26/17 Time: 9:03AM Meclizine HCl (Meclizine HCl) 12.5 MG TABLET 1 Tablet ORAL THREE TIMES DAILY as needed for VERTIGO Qty = 30 Comments: NOT GIVEN IN HOSPITAL Aspirin (Ecotrin*) 81 MG TABLET.DR 1 Tablet ORAL DAILY Qty = 30 Comments: Last Taken: 05/26/17 Time: 09:05 Clopidogrel Bisulfate (Plavix) 75 MG TABLET 1 Tablet ORAL DAILY Qty = 30 Comments: Last Taken: 05/26/17 Time: 9:16AM Lisinopril (Lisinopril) 5 MG TABLET 1 Tablet ORAL DAILY Qty = 60 Comments: Last Taken: 05/26/17 Time: 9:04AM Atorvastatin Calcium (Atorvastatin Calcium) 80 MG TABLET 1 Tablet ORAL 5 PM Comments: PT DID NOT RECEIVE IN HOSPITAL. Fluoxetine HCl (Fluoxetine HCl) 20 MG CAPSULE 1 Capsule ORAL DAILY Comments: PT DID NOT RECEIVE IN HOSPITAL. Losartan Potassium (Losartan Potassium) 50 MG TABLET 1 Tablet ORAL DAILY Qty = 30 Comments: Last Taken:05/26/17 Time:9:05AM Multivitamin (Daily Multiple Vitamin) 1 EACH TABLET 1 Tablet ORAL DAILY Comments: PT DID NOT RECEIVE IN HOSPITAL Copies To: ANIA SCHULER MD Attending MD Review Statement Documenting Attending: YOON MUÑOZ MD Other Findings: The patient is back to baseline neuro exam. Agree with transfer back to nursing facility. If any further episodes may need MRI (pacer is MRI compatible) and EEG to exclude possible post infarction seizure.
--- NOTE | 2017-05-26 09:28 | PN-Observation ---
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 Problem List: 1. CVA (cerebral vascular accident) Plan: * New onset of weakness and slurring of speech. Was evaluated by neurology who did not feel that his symptoms were new based on symptoms, CT scan, MRI. Patient's father also confirmed that he is back to his baseline in terms of his neurological deficits neurological deficits. Not a candidate for TPA at this time. Extensive workup done at [facility] in the past. He is on dual antiplatelet therapy. * Chest x-ray and urinalysis negative * Placed in observation on telemetry with Neuro checks every 2 hours * Passed bedside swallow. Can be started on regular diet and thin liquids. * Continue home medications aspirin, Plavix * Patient has refused his statin. * Blood pressure medications lisinopril and losartan * Discharge back to [facility]. * Suctions to follow-up with PCP within 1 week of discharge and follow-up with neurologist within 2 weeks of discharge, possible EEG to rule out seizure. DVT prophylaxis subcutaneous Lovenox Full code Mild pain pathway Subjective Follow-up For: CVA Complaints: no complaints Subjective: Patient was seen and examined in bed. She is eating breakfast and has no complaints. Review of Systems Constitutional: Reports: no symptoms. Neurological/Psychological: Reports: no symptoms. Objective Last 24 Hrs of Vital Signs/I&O Vital Signs Date Time Temp Pulse Resp B/P B/P Pulse O2 O2 Flow FiO2 Mean Ox Delivery Rate 05/26 1523 97.6 78 18 123/67 95 Room Air 05/26 1436 97.7 60 20 158/98 05/26 0905 158/98 05/26 0904 158/98 05/26 0600 97.7 60 20 158/98 96 Room Air 05/25 2253 98.6 61 18 148/88 99 Intake & Output 05/26 1600 05/26 0800 05/26 0000 Intake Total 390 846 9425 Output Total 350 500 Balance 840 -110 580 Intake, IV 600 Intake, Oral 840 240 480 Number 1 Bowel Movements Output, Urine 350 500 Patient 277 lb Weight Physical Exam General Appearance: Alert, Cooperative, No Acute Distress Skin: No Rashes, No Breakdown Skin Temp/Moisture Exam: Warm/Dry Sepsis Skin Exam (color): Normal for Ethnicity HEENT: Atraumatic, PERRLA, EOMI, Mucous Membr. moist/pink Neck: Supple, No JVD Cardiovascular: Regular Rate, Normal S1, Normal S2, No Murmurs Lungs: Clear to Auscultation, Normal Air Movement Abdomen: Normal Bowel Sounds, Soft, No Tenderness Neurological: Normal Speech, Sensation Intact, left sided hemiparesis, arm 1/5, leg 3/5. strength preserved in right. positive babinski on the left. Extremities: No Clubbing, No Cyanosis, No Edema, Normal Pulses, No Tenderness/ Swelling Vascular: Normal Pulses Current Medications: Current Medications Sig/Fermin Start time Last Medication Dose Route Stop Time Status Admin Acetaminophen 325 MG Q6P PRN 05/25 1500 AC PO Acetaminophen 1,000 MG Q6P PRN 05/25 1500 AC IV Aspirin Buffered 81 MG DAILY 05/26 1000 AC 05/26 PO 0905 Atorvastatin Calcium 80 MG 1700 05/25 1700 AC PO Clopidogrel Bisulfate 75 MG DAILY 05/26 1000 AC 05/26 PO 0916 Enoxaparin Sodium 40 MG DAILY 05/25 1449 AC 05/26 SC 0915 Fenofibrate 48 MG DAILY 05/26 1000 AC 05/26 PO 0903 Fluoxetine HCl 20 MG DAILY 05/26 1000 AC PO Guaifenesin 10 ML Q4P PRN 05/25 2200 AC 05/26 PO 1119 Hydromorphone HCl 0.5 MG Q4P PRN 05/25 1500 AC IV Lisinopril 5 MG DAILY 05/26 1000 AC 05/26 PO 0904 Losartan Potassium 50 MG DAILY 05/26 1000 AC 05/26 PO 0905 Meclizine HCl 12.5 MG TID PRN 05/25 1500 AC PO Niacin 500 MG DAILY 05/26 1000 AC 05/26 PO 0906 Patient Medication 1 ED .STK-MED ONE 05/26 1357 DC Teaching ED 05/26 1358 Ramelteon 8 MG ONCE ONE 05/26 1045 DC PO 05/26 1046 Sodium Chloride 1,000 ML ONCE ONE 05/25 1215 DC 05/25 IV 05/25 8855 [id number] YOON MUÑOZ MD 05/26/17 1900: Observation Note Observation Note _ I have personally examined KACI MAK. him disposition is uncertain at this time. Before a determination can be made, he requires continued observation for Attending Statement Pt examined & info reviewed Yes Agree w/findings/assess/plan Yes Additions/Exceptions to plan The patient is back to baseline of neuro exam and behaviour. Could represent TIA or possible post infarction seizure. Will discharge back to rehab- [facility]. If further episodes - ? MRI and EEG. Documenting Attending YOON MUÑOZ MD
[2017-05-26 14:36] VITALS: BP 158/98
[2017-05-26 15:23] VITALS: BP 123/67
== END 2017-05-26 17:05 ==
LOC: ERH 11:50 → 1NO 15:08 → ERHI 15:08 → ENRESERV 15:37 → ENTRNSPT 16:27 → 1NO 16:55 → CMPTRNSPT 16:58 → 1NO 05-26 08:23 → ENPENDDIS 05-26 12:46 → 1NO 05-26 17:05
PROVIDERS: Emergency Medicine; ADMIT Internal Medicine
DX: I63.9 Cerebral infarction, unspecified (principal); I10 Essential (primary) hypertension; E66.01 Morbid (severe) obesity due to excess calories; E78.5 Hyperlipidemia, unspecified; Z95.0 Presence of cardiac pacemaker; F32.9 Major depressive disorder, single episode, unspecified; F17.200 Nicotine dependence, unspecified, uncomplicated; I69.354 Hemiplegia and hemiparesis following cerebral infarction affecting left non-dominant side
CPT/HCPCS: 6020; 80307; 81001; 93005; 93010; 96372; 99291; G0378; J0131; J1650